=== PATIENT | female | born 1960 | race African-American/Black ===

== ENCOUNTER 2016-11-30 18:03 | Inpatient (IN) | payer MEDICARE, OTHER ==
[~2016-11-30] VITALS: Ht 157.5 cm; Wt 92.7 kg
[~2016-11-30 18:03] MED LIST: ACYCLOVIR800 MG PO; AMLODIPINE10 MG OR; AMLODIPINE10 MG PO; AMLODIPINE5 MG PO; AMOXICILLIN250 M1 PO; ASA/BUT/CAF1 PO; ASPIRIN LOW DOS81 M2 PO; ASPIRIN81 M1 OR; ASPIRIN81 MG PO; ATENOLOL100 M1 PO; ATENOLOL50 MG PO; AUGMENTIN500TAB PO; BACTRIM DS1 TAB OR; BENZOYL PEROXIDE EX; BRILINTA90 MG PO; CARDIZEM CD 180 PO; CARTIA XT180 MG/24 PO; CEFTIN250 MG PO; CEPHALEXIN500 MG OR; CLEOCIN T 1% EX; CLINDAMYCIN11 EX; COREG12.5 MG PO; CORTISPORIN OTI10 ML AD; CRESTOR10 MG PO; CRESTOR20 MG PO; DERMA SMOOTHE TOP; DYAZIDE1 CAP PO; FLEXERIL OR; FLEXERIL10 MG OR; FLEXERIL5 MG PO; FLONASE NASAL50 MCG; HYDRALAZINE25 MG PO; HYDROCHLOROT12.5 MG PO; HYDROCO/APAP1 T10 PO; KETOCONAZOLE21 EX; LASIX 80 MG TAB80 MG PO; LASIX40 MG PO; LISINOP/HCTZ1 TA1 PO; LISINOPRIL20 MG OR; LISINOPRIL20 MG PO; LORTAB 5 PO; LORTAB 7.5 PO; LORTAB 7.57.5 MG PO; LORTAB5 OR; LORTAB5 PO; LOTRISONE TOP; MAXZIDE OR; MEDDOSEPAK PO; METOPROL TAR50 MG PO; METOPROLOL50 MG PO; NITRO-DUR0.4 MG/HR TD; NITROQUICK0.4 MG SL; NITROSTAT0.4 MG SL; NORVASC10 MG PO; NORVASC2.5 MG PO; NORVASC5 MG PO; OXYCO/APAP1 TA5 PO; PERCOCET1 TA4 PO; PLAVIX75 MG PO; POLYSPORIN3.5 GM OP; POT CHLORIDE10 ME1 PO; POT CL MICRO20 MEQ PO; ROBITUSSIN AC10 ML PO; TESSALON PER100 MG PO; TIZANIDINE4 MG PO; TRIAMCINOLON0.13 EX; ULTRAM50 M1 PO; ULTRAM50 MG OR; VYTORIN 10/201 TAB OR; XANAX0.5 MG PO; ZITHROMAX250 MG PO; ZITHROMAX500 MG PO; ZOFRAN ODT4 MG PO; ZPAK PO; ZYRTEC-D AL1 PO; ZYRTEC-D ALG PO
[2016-11-30 19:44] LABS: HEMATOCRIT 40.5 % (37.0-47.0); IMMATURE GRANULOCYTES 0.5 % (0.0-1.0); MEAN CORPUSCULAR HGB 28.3 pG CALC (26.0-32.0); MEAN CORPUSCULAR HGB CONC 32.1 g/L CALC (32.0-36.0); NEUT# 3.42 thou/uL (2.00-7.15); RED BLOOD COUNT 4.6 mill/uL (4.20-5.60); RED CELL DISTRI WIDTH 14.5 % (11.5-15.5)
[2016-11-30 19:46] LABS: URINE BILIRUBIN - DIPSTICK NEGATIVE (NEGATIVE); URINE BLOOD DIPSTICK TRACE-INTACT (NEGATIVE); URINE CLARITY CLEAR; URINE COLOR YELLOW; URINE GLUCOSE - DIPSTICK NEGATIVE (NEGATIVE); URINE KETONE NEGATIVE (NEGATIVE); URINE LEUK ESTERASE NEGATIVE (NEGATIVE); URINE NITRITE - DIPSTICK NEGATIVE (Negative); URINE PH 5.5 (4.5-8.0); URINE PROTEIN - DIPSTICK >=300 mg/dL (NEG-TRACE); URINE SPECIFIC GRAVITY 1.025; URINE UROBILINOGEN - DIPSTICK 0.2 E.U./dL (0.2)
[2016-11-30 20:03] LABS: ALBUMIN 3.8 g/dL (3.2-5.0); BILIRUBIN, TOTAL 0.5 mg/dL (0.0-1.4); CALCIUM 8.8 mg/dL (8.4-10.2); CREATININE 1.3 mg/dL (0.5-1.0); POTASSIUM 4.6 mmol/l (3.5-5.1); TOTAL PROTEIN 7.5 g/dL (6.3-8.2)
[2016-11-30 20:34] LABS: URINE SQUAMOUS EPITHELIAL CELL FEW EPI/hpf (0-FEW)
[2016-11-30] MEDS ORDERED: METOPROL TAR100 MG PO (20:55)
[2016-11-30 22:00] VITALS: BP 160/92
[2016-12-01 04:00] VITALS: BP 150/103
[2016-12-01 05:35] LABS: HEMATOCRIT 43.8 % (37.0-47.0); HEMOGLOBIN 14.1 g/dl (12.0-16.0); IMMATURE GRANULOCYTES 0.3 % (0.0-1.0); MEAN CELL VOLUME 88.5 fL CALC (80.0-100.0); MEAN CORPUSCULAR HGB 28.5 pG CALC (26.0-32.0); MEAN CORPUSCULAR HGB CONC 32.2 g/L CALC (32.0-36.0); NEUT# 2.98 thou/uL (2.00-7.15); RED BLOOD COUNT 4.95 mill/uL (4.20-5.60); RED CELL DISTRI WIDTH 14.6 % (11.5-15.5)
[2016-12-01 05:36] LABS: ALBUMIN 3.7 g/dL (3.2-5.0); BILIRUBIN, TOTAL 0.4 mg/dL (0.0-1.4); CALCIUM 8.5 mg/dL (8.4-10.2); CHOLESTEROL HDL RATIO 5.3 (<4.4 (CALC)); CREATININE 1.2 mg/dL (0.5-1.0); POTASSIUM 4.2 mmol/l (3.5-5.1); TOTAL PROTEIN 7.2 g/dL (6.3-8.2)
[2016-12-01 07:08] VITALS: BP 158/92
[2016-12-01 11:22] VITALS: BP 120/79
[2016-12-01 16:14] VITALS: BP 153/83
[2016-12-01 20:17] VITALS: BP 165/92
[2016-12-02 00:21] VITALS: BP 139/90
[2016-12-02 04:00] VITALS: BP 145/87
[2016-12-02 04:52] LABS: HEMATOCRIT 45.9 % (37.0-47.0); HEMOGLOBIN 14.4 g/dl (12.0-16.0); IMMATURE GRANULOCYTES 0.3 % (0.0-1.0); MEAN CELL VOLUME 90.4 fL CALC (80.0-100.0); MEAN CORPUSCULAR HGB 28.3 pG CALC (26.0-32.0); MEAN CORPUSCULAR HGB CONC 31.4 g/L CALC (32.0-36.0); NEUT# 6.24 thou/uL (2.00-7.15); RED BLOOD COUNT 5.08 mill/uL (4.20-5.60); RED CELL DISTRI WIDTH 14.6 % (11.5-15.5)
[2016-12-02 05:20] LABS: CALCIUM 8.7 mg/dL (8.4-10.2); CREATININE 1.6 mg/dL (0.5-1.0); POTASSIUM 4.7 mmol/l (3.5-5.1)
[2016-12-02 06:26] LABS: URINE BILIRUBIN - DIPSTICK NEGATIVE (NEGATIVE); URINE BLOOD DIPSTICK TRACE-INTACT (NEGATIVE); URINE CLARITY CLEAR; URINE COLOR YELLOW; URINE GLUCOSE - DIPSTICK NEGATIVE (NEGATIVE); URINE KETONE NEGATIVE (NEGATIVE); URINE LEUK ESTERASE NEGATIVE (NEGATIVE); URINE NITRITE - DIPSTICK NEGATIVE (Negative); URINE PH 5.5 (4.5-8.0); URINE PROTEIN - DIPSTICK 100 mg/dL (NEG-TRACE); URINE SPECIFIC GRAVITY >=1.030; URINE UROBILINOGEN - DIPSTICK 0.2 E.U./dL (0.2)
[2016-12-02 06:51] LABS: URINE SQUAMOUS EPITHELIAL CELL FEW EPI/hpf (0-FEW); URINE WBC 0-2 WBC/hpf (0-5)
[2016-12-02 08:03] VITALS: BP 159/98
[2016-12-02 11:05] VITALS: BP 164/96
[2016-12-02 16:24] VITALS: BP 172/100
[2016-12-02 19:03] VITALS: BP 143/83
[2016-12-03] VITALS (8 sets, daily range): BP systolic 142–190; BP diastolic 84–105
[2016-12-03 05:50] LABS: HEMATOCRIT 37.2 % (37.0-47.0); HEMOGLOBIN 12.2 g/dl (12.0-16.0); IMMATURE GRANULOCYTES 0.6 % (0.0-1.0); MEAN CELL VOLUME 87.5 fL CALC (80.0-100.0); MEAN CORPUSCULAR HGB 28.7 pG CALC (26.0-32.0); MEAN CORPUSCULAR HGB CONC 32.8 g/L CALC (32.0-36.0); NEUT# 3.95 thou/uL (2.00-7.15); RED BLOOD COUNT 4.25 mill/uL (4.20-5.60); RED CELL DISTRI WIDTH 14.4 % (11.5-15.5)
[2016-12-03 06:07] LABS: ALBUMIN 3.5 g/dL (3.2-5.0); BILIRUBIN, TOTAL 0.5 mg/dL (0.0-1.4); CALCIUM 8.4 mg/dL (8.4-10.2); CREATININE 1.6 mg/dL (0.5-1.0); TOTAL PROTEIN 6.8 g/dL (6.3-8.2)
[2016-12-04 03:25] VITALS: BP 140/87
[2016-12-04 06:14] LABS: CALCIUM 8.4 mg/dL (8.4-10.2); CREATININE 1.7 mg/dL (0.5-1.0); HEMATOCRIT 36.6 % (37.0-47.0); HEMOGLOBIN 12.1 g/dl (12.0-16.0); IMMATURE GRANULOCYTES 0.5 % (0.0-1.0); MEAN CELL VOLUME 86.9 fL CALC (80.0-100.0); MEAN CORPUSCULAR HGB 28.7 pG CALC (26.0-32.0); MEAN CORPUSCULAR HGB CONC 33.1 g/L CALC (32.0-36.0); NEUT# 2.53 thou/uL (2.00-7.15); POTASSIUM 4.1 mmol/l (3.5-5.1); RED BLOOD COUNT 4.21 mill/uL (4.20-5.60); RED CELL DISTRI WIDTH 14.5 % (11.5-15.5)
[2016-12-04 07:48] VITALS: BP 154/95
[2016-12-04 11:09] VITALS: BP 163/97
[2016-12-04 16:59] VITALS: BP 145/96
[2016-12-04] MEDS ORDERED: LEVAQUIN750 MG PO (17:30)
[2016-12-04] MEDS ORDERED: OXYCOD/APAP1 TA4 PO (17:31)
[2016-12-04] MEDS ORDERED: ALPRAZOLAM0.5 MG PO (17:31)
[2016-12-04] MEDS ORDERED: PROAIR HFA108 MCG/AC PO (17:33)
== END 2016-12-04 19:30 | disposition home health service (06) | DRG 194 ==
LOC: ED 18:03 → ED-I 20:27 → ED 20:42 → MS2 20:43 → ICU 12-01 17:00 → MS2 12-02 07:40
PROVIDERS: Emergency Medicine; ADMIT Internal Medicine Geriatric Medicine; ATTEND Internal Medicine Geriatric Medicine
DX: J18.9 Pneumonia, unspecified organism (principal); I42.9 Cardiomyopathy, unspecified; I11.0 Hypertensive heart disease with heart failure; I50.9 Heart failure, unspecified; I25.10 Atherosclerotic heart disease of native coronary artery without angina pectoris; I48.91 Unspecified atrial fibrillation; K21.9 Gastro-esophageal reflux disease without esophagitis; M19.90 Unspecified osteoarthritis, unspecified site; G89.29 Other chronic pain; M54.5 Low back pain; G47.30 Sleep apnea, unspecified; R09.02 Hypoxemia; Z95.810 Presence of automatic (implantable) cardiac defibrillator; Z95.5 Presence of coronary angioplasty implant and graft

== ENCOUNTER 2017-06-01 14:53 | Emergency (ER) | payer MEDICARE, OTHER ==
[~2017-06-01] VITALS: Ht 157.5 cm; Wt 92.5 kg
[~2017-06-01 14:53] MED LIST changes: +ALPRAZOLAM0.5 MG PO; +LEVAQUIN750 MG PO; +METOPROL TAR100 MG PO; +OXYCOD/APAP1 TA4 PO; +PROAIR HFA108 MCG/AC PO
[2017-06-01 16:11] LABS: INFLUENZA A NONE DETECTED (NONE DETECT); INFLUENZA B NONE DETECTED (NONE DETECT)
[2017-06-01] MEDS ORDERED: MOTRIN400 MG PO (17:28)
[2017-06-01] MEDS ORDERED: DOXYCYC MONO100 M2 PO (17:28)
[2017-06-01 17:44] VITALS: BP 194/98
== END 2017-06-01 17:49 | disposition home or self-care (01) ==
LOC: ED 14:53
PROVIDERS: Family Medicine
DX: J06.9 Acute upper respiratory infection, unspecified (principal); M25.571 Pain in right ankle and joints of right foot; M25.561 Pain in right knee; I11.9 Hypertensive heart disease without heart failure; Z95.0 Presence of cardiac pacemaker; Z87.01 Personal history of pneumonia (recurrent)

== ENCOUNTER 2017-07-06 18:52 | Emergency (ER) | payer MEDICARE, OTHER ==
[~2017-07-06] VITALS: Ht 157.5 cm; Wt 91.4 kg
[~2017-07-06 18:52] MED LIST changes: +DOXYCYC MONO100 M2 PO; +MOTRIN400 MG PO
[2017-07-06 20:12] LABS: ALBUMIN 3.6 g/dL (3.2-5.0); BILIRUBIN, TOTAL 0.4 mg/dL (0.0-1.4); CREATININE 1.4 mg/dL (0.5-1.0); POTASSIUM 4.2 mmol/l (3.5-5.1); TOTAL PROTEIN 6.8 g/dL (6.3-8.2)
[2017-07-06 20:26] LABS: IMMATURE GRANULOCYTES 0.1 % (0.0-1.0); MEAN CELL VOLUME 88.5 fL CALC (80.0-100.0); MEAN CORPUSCULAR HGB 28.8 pG CALC (26.0-32.0); MEAN CORPUSCULAR HGB CONC 32.5 g/L CALC (32.0-36.0); NEUT# 3.45 thou/uL (2.00-7.15); RED BLOOD COUNT 4.52 mill/uL (4.20-5.60); RED CELL DISTRI WIDTH 14.3 % (11.5-15.5)
[2017-07-06] MEDS ORDERED: FIORICET PO (20:38)
[2017-07-06 20:50] VITALS: BP 141/81
== END 2017-07-06 20:55 | disposition home or self-care (01) ==
LOC: ED 18:52
PROVIDERS: Emergency Medicine
DX: R51 Headache (principal); I11.9 Hypertensive heart disease without heart failure; Z95.0 Presence of cardiac pacemaker; Z87.01 Personal history of pneumonia (recurrent)

== ENCOUNTER 2017-07-26 01:27 | Inpatient (IN) | payer MEDICARE, OTHER ==
[2017-07-26] VITALS (15 sets, daily range): BP systolic 137–165; BP diastolic 75–96
[~2017-07-26] VITALS: Ht 157.5 cm; Wt 92.2 kg
[~2017-07-26 01:27] MED LIST changes: +FIORICET PO
[2017-07-26 01:58] LABS: HEMATOCRIT 37.9 % (37.0-47.0); HEMOGLOBIN 12.2 g/dl (12.0-16.0); IMMATURE GRANULOCYTES 0.4 % (0.0-1.0); MEAN CELL VOLUME 88.6 fL CALC (80.0-100.0); MEAN CORPUSCULAR HGB 28.5 pG CALC (26.0-32.0); MEAN CORPUSCULAR HGB CONC 32.2 g/L CALC (32.0-36.0); NEUT# 8.26 thou/uL (2.00-7.15); RED BLOOD COUNT 4.28 mill/uL (4.20-5.60); RED CELL DISTRI WIDTH 14.6 % (11.5-15.5)
[2017-07-26 02:43] LABS: ALBUMIN 3.6 g/dL (3.2-5.0); BILIRUBIN, TOTAL 0.5 mg/dL (0.0-1.4); CREATININE 1.3 mg/dL (0.5-1.0); POTASSIUM 3.8 mmol/l (3.5-5.1); TOTAL PROTEIN 7.4 g/dL (6.3-8.2)
[2017-07-26 03:05] LABS: PROTHROMBIN TIME 10.7 SECONDS (9.0-12.5)
[2017-07-26 05:18] LABS: URINE BILIRUBIN - DIPSTICK NEGATIVE (NEGATIVE); URINE BLOOD DIPSTICK TRACE-INTACT (NEGATIVE); URINE COLOR YELLOW; URINE GLUCOSE - DIPSTICK NEGATIVE (NEGATIVE); URINE KETONE NEGATIVE (NEGATIVE); URINE LEUK ESTERASE NEGATIVE (NEGATIVE); URINE NITRITE - DIPSTICK NEGATIVE (Negative); URINE PH 5.5 (4.5-8.0); URINE PROTEIN - DIPSTICK >=300 mg/dL (NEG-TRACE); URINE SPECIFIC GRAVITY >=1.030; URINE UROBILINOGEN - DIPSTICK 0.2 E.U./dL (0.2)
[2017-07-26 05:19] LABS: URINE CLARITY SL CLOUDY
[2017-07-26 05:24] LABS: URINE BACTERIA FEW hpf; URINE MUCUS FEW hpf (NONE-FEW); URINE SQUAMOUS EPITHELIAL CELL MODERATE EPI/hpf (0-FEW)
[2017-07-26 09:30] LABS: CHOLESTEROL HDL RATIO 5.3 (<4.4 (CALC))
[2017-07-27 04:05] VITALS: BP 136/82
[2017-07-27 04:17] LABS: HEMATOCRIT 36.5 % (37.0-47.0); HEMOGLOBIN 11.7 g/dl (12.0-16.0); IMMATURE GRANULOCYTES 1.6 % (0.0-1.0); MEAN CELL VOLUME 89.9 fL CALC (80.0-100.0); MEAN CORPUSCULAR HGB 28.8 pG CALC (26.0-32.0); MEAN CORPUSCULAR HGB CONC 32.1 g/L CALC (32.0-36.0); NEUT# 10.71 thou/uL (2.00-7.15); RED BLOOD COUNT 4.06 mill/uL (4.20-5.60); RED CELL DISTRI WIDTH 14.6 % (11.5-15.5)
[2017-07-27 04:24] LABS: ALBUMIN 3.5 g/dL (3.2-5.0); BILIRUBIN, TOTAL 0.4 mg/dL (0.0-1.4); CREATININE 1.5 mg/dL (0.5-1.0); TOTAL PROTEIN 7.1 g/dL (6.3-8.2)
[2017-07-27 04:28] LABS: POTASSIUM 4.6 mmol/l (3.5-5.1)
[2017-07-27 06:00] VITALS: BP 139/85
[2017-07-27 08:00] VITALS: BP 156/85
[2017-07-27 10:00] VITALS: BP 155/87
[2017-07-27 11:00] VITALS: BP 128/90
[2017-07-27 12:00] VITALS: BP 120/78
== END 2017-07-27 13:30 | DRG 291 ==
LOC: ED 01:27 → ED-I 05:30 → ED 06:28 → ICU 06:39
PROVIDERS: Emergency Medicine; ADMIT Internal Medicine Geriatric Medicine; ATTEND Internal Medicine Geriatric Medicine
DX: I11.0 Hypertensive heart disease with heart failure (principal); J18.9 Pneumonia, unspecified organism; I47.2 Ventricular tachycardia; I42.9 Cardiomyopathy, unspecified; F11.20 Opioid dependence, uncomplicated; I50.9 Heart failure, unspecified; I25.10 Atherosclerotic heart disease of native coronary artery without angina pectoris; M19.90 Unspecified osteoarthritis, unspecified site; G89.29 Other chronic pain; M10.9 Gout, unspecified; K21.9 Gastro-esophageal reflux disease without esophagitis; K27.9 Peptic ulcer, site unspecified, unspecified as acute or chronic, without hemorrhage or perforation; M54.5 Low back pain; F41.9 Anxiety disorder, unspecified; R09.02 Hypoxemia; G47.30 Sleep apnea, unspecified; Z86.73 Personal history of transient ischemic attack (TIA), and cerebral infarction without residual deficits; Z87.01 Personal history of pneumonia (recurrent); Z95.5 Presence of coronary angioplasty implant and graft; Z95.0 Presence of cardiac pacemaker

== ENCOUNTER 2017-09-30 11:03 | Emergency (ER) | payer MEDICARE, OTHER ==
[~2017-09-30] VITALS: Ht 157.5 cm; Wt 84.0 kg
[2017-09-30 12:16] LABS: IMMATURE GRANULOCYTES 0.4 % (0.0-1.0); MEAN CELL VOLUME 91.8 fL CALC (80.0-100.0); MEAN CORPUSCULAR HGB 28.8 pG CALC (26.0-32.0); MEAN CORPUSCULAR HGB CONC 31.4 g/L CALC (32.0-36.0); NEUT# 2.62 thou/uL (2.00-7.15); RED BLOOD COUNT 3.19 mill/uL (4.20-5.60); RED CELL DISTRI WIDTH 16.7 % (11.5-15.5)
[2017-09-30 12:17] LABS: HEMATOCRIT 29.3 % (37.0-47.0); HEMOGLOBIN 9.2 g/dl (12.0-16.0)
[2017-09-30 12:21] LABS: INTERNATIONAL NORMALIZED RATIO 2.3 RATIO (0.7-1.3); PROTHROMBIN TIME 25.8 SECONDS (9.0-12.5)
[2017-09-30 12:26] LABS: ALBUMIN 4.1 g/dL (3.2-5.0); BILIRUBIN, TOTAL 0.5 mg/dL (0.0-1.4); MAGNESIUM 1.7 mg/dL (1.6-2.3); POTASSIUM 4.2 mmol/l (3.5-5.1); TOTAL PROTEIN 8.1 g/dL (6.3-8.2)
[2017-09-30 12:35] LABS: CREATININE 5.8 mg/dL (0.5-1.0)
[2017-09-30] MEDS ORDERED: PANTOPRAZOLE SO40 MG PO (12:46)
[2017-09-30] MEDS ORDERED: JANTOVEN4 MG PO (12:46)
[2017-09-30] MEDS ORDERED: VITAMIN C1000 MG PO (12:47)
[2017-09-30] MEDS ORDERED: TEMAZEPAM15 MG PO (12:47)
[2017-09-30] MEDS ORDERED: GABAPENTIN100 MG PO (12:47)
[2017-09-30] MEDS ORDERED: ZINC SULFATE220 MG PO (12:48)
[2017-09-30] MEDS ORDERED: AMIODARONE200 MG PO (12:49)
[2017-09-30 13:30] VITALS: BP 167/85
== END 2017-09-30 13:30 | disposition short-term general hospital (02) ==
LOC: ED 11:03
PROVIDERS: Family Medicine
DX: I21.4 Non-ST elevation (NSTEMI) myocardial infarction (principal); N18.6 End stage renal disease; Z99.2 Dependence on renal dialysis; M19.90 Unspecified osteoarthritis, unspecified site; Z86.73 Personal history of transient ischemic attack (TIA), and cerebral infarction without residual deficits; Z95.0 Presence of cardiac pacemaker; Z79.01 Long term (current) use of anticoagulants

== ENCOUNTER 2018-02-24 17:35 | Emergency (ER) | payer MEDICARE, OTHER ==
[~2018-02-24] VITALS: Ht 157.5 cm; Wt 85.0 kg
[~2018-02-24 17:35] MED LIST changes: +AMIODARONE200 MG PO; +GABAPENTIN100 MG PO; +JANTOVEN4 MG PO; +LABETALOL100 MG PO; +NORVASC5 M1 PO; +PANTOPRAZOLE SO40 MG PO; +TEMAZEPAM15 MG PO; +VITAMIN C1000 MG PO; +ZINC SULFATE220 MG PO
[2018-02-24 18:31] LABS: INFLUENZA A NONE DETECTED (NONE DETECT); INFLUENZA B NONE DETECTED (NONE DETECT)
[2018-02-24 19:17] LABS: HEMATOCRIT 34.5 % (37.0-47.0); HEMOGLOBIN 10.8 g/dl (12.0-16.0); IMMATURE GRANULOCYTES 0.6 % (0.0-5.0); MEAN CORPUSCULAR HGB 28.5 pG CALC (26.0-32.0); MEAN CORPUSCULAR HGB CONC 31.3 g/L CALC (32.0-36.0); NEUT# 5.62 thou/uL (2.00-7.15); RED BLOOD COUNT 3.79 mill/uL (4.20-5.60); RED CELL DISTRI WIDTH 17.3 % (11.5-15.5)
[2018-02-24 19:37] LABS: ALBUMIN 3.9 g/dL (3.2-5.0); BILIRUBIN, TOTAL 0.3 mg/dL (0.0-1.4); TOTAL PROTEIN 7.2 g/dL (6.3-8.2)
[2018-02-24 19:39] LABS: CREATININE 7.1 mg/dL (0.5-1.0); POTASSIUM 4.2 mmol/l (3.5-5.1)
[2018-02-24 20:44] LABS: URINE BILIRUBIN - DIPSTICK NEGATIVE (NEGATIVE); URINE BLOOD DIPSTICK SMALL (NEGATIVE); URINE COLOR YELLOW; URINE GLUCOSE - DIPSTICK NEGATIVE (NEGATIVE); URINE KETONE TRACE mg/dL (NEGATIVE); URINE NITRITE - DIPSTICK NEGATIVE (Negative); URINE PH 5.5 (4.5-8.0); URINE PROTEIN - DIPSTICK >=300 mg/dL (NEG-TRACE); URINE SPECIFIC GRAVITY >=1.030; URINE UROBILINOGEN - DIPSTICK 0.2 E.U./dL (0.2)
[2018-02-24 20:46] LABS: URINE CLARITY HAZY; URINE LEUK ESTERASE MODERATE (NEGATIVE)
[2018-02-24 20:47] LABS: URINE SQUAMOUS EPITHELIAL CELL FEW EPI/hpf (0-FEW)
[2018-02-24] MEDS ORDERED: ROBITUSSIN200 MG/10 PO (20:50)
[2018-02-24] MEDS ORDERED: TESSALON PER100 MG PO (20:51)
[2018-02-24 21:19] VITALS: BP 157/87
== END 2018-02-24 21:19 | disposition home or self-care (01) ==
LOC: ED 17:35
DX: B34.9 Viral infection, unspecified (principal); I13.2 Hypertensive heart and chronic kidney disease with heart failure and with stage 5 chronic kidney disease, or end stage renal disease; N18.6 End stage renal disease; I50.9 Heart failure, unspecified; Z99.2 Dependence on renal dialysis; F41.9 Anxiety disorder, unspecified; I25.10 Atherosclerotic heart disease of native coronary artery without angina pectoris; Z95.0 Presence of cardiac pacemaker; Z86.73 Personal history of transient ischemic attack (TIA), and cerebral infarction without residual deficits; R94.31 Abnormal electrocardiogram [ECG] [EKG]

== ENCOUNTER 2018-03-08 04:27 | Emergency (ER) | payer MEDICARE, OTHER ==
[~2018-03-08] VITALS: Ht 157.5 cm; Wt 80.0 kg
[~2018-03-08 04:27] MED LIST changes: +ROBITUSSIN200 MG/10 PO
[2018-03-08 05:14] LABS: IMMATURE GRANULOCYTES 0.4 % (0.0-5.0); MEAN CELL VOLUME 89.1 fL CALC (80.0-100.0); MEAN CORPUSCULAR HGB 28.7 pG CALC (26.0-32.0); MEAN CORPUSCULAR HGB CONC 32.3 g/L CALC (32.0-36.0); NEUT# 5.17 thou/uL (2.00-7.15); RED BLOOD COUNT 3.48 mill/uL (4.20-5.60); RED CELL DISTRI WIDTH 16.9 % (11.5-15.5)
[2018-03-08 05:22] LABS: ALBUMIN 3.5 g/dL (3.2-5.0); BILIRUBIN, TOTAL 0.4 mg/dL (0.0-1.4); POTASSIUM 4.2 mmol/l (3.5-5.1); TOTAL PROTEIN 6.8 g/dL (6.3-8.2)
[2018-03-08 05:24] LABS: ACT PARTIAL THROMBO TIME 33.2 SECONDS (20.0-32.5)
[2018-03-08 05:35] LABS: PROTHROMBIN TIME 10.3 SECONDS (9.0-12.5)
[2018-03-08 05:37] LABS: CREATININE 6.6 mg/dL (0.5-1.0)
[2018-03-08 07:22] VITALS: BP 170/91
== END 2018-03-08 07:15 | disposition short-term general hospital (02) ==
LOC: ED 04:27
PROVIDERS: Emergency Medicine
DX: R07.9 Chest pain, unspecified (principal); I13.2 Hypertensive heart and chronic kidney disease with heart failure and with stage 5 chronic kidney disease, or end stage renal disease; N18.6 End stage renal disease; I50.9 Heart failure, unspecified; I25.10 Atherosclerotic heart disease of native coronary artery without angina pectoris; Z99.2 Dependence on renal dialysis; Z95.0 Presence of cardiac pacemaker; Z86.73 Personal history of transient ischemic attack (TIA), and cerebral infarction without residual deficits; R06.02 Shortness of breath

== ENCOUNTER 2018-05-29 15:16 | Emergency (ER) | payer MEDICARE, OTHER ==
[~2018-05-29] VITALS: Ht 157.5 cm; Wt 104.5 kg
[2018-05-29] MEDS ORDERED: PHENERGAN25 MG/TAB PO (16:37)
[2018-05-29] MEDS ORDERED: AMOXICILLIN500 MG PO (16:37)
[2018-05-29 16:43] VITALS: BP 175/79
== END 2018-05-29 16:51 | disposition home or self-care (01) ==
LOC: ED 15:16
DX: I12.0 Hypertensive chronic kidney disease with stage 5 chronic kidney disease or end stage renal disease (principal); N18.6 End stage renal disease; T46.5X6A Underdosing of other antihypertensive drugs, initial encounter; F41.9 Anxiety disorder, unspecified; Z99.2 Dependence on renal dialysis; Z91.128 Patient's intentional underdosing of medication regimen for other reason; Z86.73 Personal history of transient ischemic attack (TIA), and cerebral infarction without residual deficits; Z95.0 Presence of cardiac pacemaker

== ENCOUNTER 2018-07-19 19:46 | Emergency (ER) | payer MEDICARE, OTHER ==
[~2018-07-19] VITALS: Ht 157.5 cm; Wt 79.8 kg
[~2018-07-19 19:46] MED LIST changes: +AMOXICILLIN500 MG PO; +PHENERGAN25 MG/TAB PO
[2018-07-19] MEDS ORDERED: AUGMENTIN500TAB PO (20:12)
[2018-07-19 20:35] VITALS: BP 147/91
== END 2018-07-19 20:35 | disposition home or self-care (01) ==
LOC: ED 19:46
DX: J01.90 Acute sinusitis, unspecified (principal); I13.2 Hypertensive heart and chronic kidney disease with heart failure and with stage 5 chronic kidney disease, or end stage renal disease; I50.9 Heart failure, unspecified; N18.6 End stage renal disease; I25.10 Atherosclerotic heart disease of native coronary artery without angina pectoris; Z99.2 Dependence on renal dialysis; Z95.0 Presence of cardiac pacemaker

== ENCOUNTER 2018-07-29 18:13 | Emergency (ER) | payer MEDICARE, OTHER ==
[~2018-07-29] VITALS: Ht 157.5 cm; Wt 80.6 kg
[2018-07-29 19:23] LABS: HEMATOCRIT 34.5 % (37.0-47.0); HEMOGLOBIN 10.9 g/dl (12.0-16.0); IMMATURE GRANULOCYTES 0.3 % (0.0-5.0); MEAN CELL VOLUME 88.2 fL CALC (80.0-100.0); MEAN CORPUSCULAR HGB 27.9 pG CALC (26.0-32.0); MEAN CORPUSCULAR HGB CONC 31.6 g/L CALC (32.0-36.0); NEUT# 6.62 thou/uL (2.00-7.15); RED BLOOD COUNT 3.91 mill/uL (4.20-5.60); RED CELL DISTRI WIDTH 15.9 % (11.5-15.5)
[2018-07-29 19:42] LABS: URINE BILIRUBIN - DIPSTICK NEGATIVE (NEGATIVE); URINE BLOOD DIPSTICK NEGATIVE (NEGATIVE); URINE COLOR YELLOW; URINE GLUCOSE - DIPSTICK NEGATIVE (NEGATIVE); URINE KETONE TRACE mg/dL (NEGATIVE); URINE NITRITE - DIPSTICK NEGATIVE (Negative); URINE PROTEIN - DIPSTICK 100 mg/dL (NEG-TRACE); URINE SPECIFIC GRAVITY >=1.030; URINE UROBILINOGEN - DIPSTICK 0.2 E.U./dL (0.2)
[2018-07-29 19:44] LABS: BILIRUBIN, TOTAL 0.5 mg/dL (0.0-1.4); MAGNESIUM 1.7 mg/dL (1.6-2.3); POTASSIUM 4.4 mmol/l (3.5-5.1); TOTAL PROTEIN 8.1 g/dL (6.3-8.2)
[2018-07-29 19:45] LABS: URINE LEUK ESTERASE SMALL (NEGATIVE)
[2018-07-29 19:47] LABS: ALBUMIN 4.6 g/dL (3.2-5.0); CREATININE 5.8 mg/dL (0.5-1.0)
[2018-07-29 19:51] LABS: URINE RBC 0-2 RBC/hpf (0-5); URINE SQUAMOUS EPITHELIAL CELL FEW EPI/hpf (0-FEW)
[2018-07-29 20:14] LABS: TSH, 3RD GENERATION 2.42 uIU/mL (0.47 - 4.68)
[2018-07-29] MEDS ORDERED: TORADOL PO (20:24)
[2018-07-29] MEDS ORDERED: KEFLEX500 MG PO (20:24)
[2018-07-29 20:47] VITALS: BP 134/77
== END 2018-07-29 20:44 | disposition home or self-care (01) ==
LOC: ED 18:13
PROVIDERS: Family Medicine
DX: S16.1XXA Strain of muscle, fascia and tendon at neck level, initial encounter (principal); N39.0 Urinary tract infection, site not specified; K59.00 Constipation, unspecified; R53.1 Weakness; Z86.73 Personal history of transient ischemic attack (TIA), and cerebral infarction without residual deficits; Z95.0 Presence of cardiac pacemaker; I12.0 Hypertensive chronic kidney disease with stage 5 chronic kidney disease or end stage renal disease; N18.6 End stage renal disease; Z99.2 Dependence on renal dialysis

== ENCOUNTER 2018-09-19 09:51 | Observation (INO) | payer MEDICARE, OTHER ==
[~2018-09-19] VITALS: Ht 157.5 cm; Wt 82.0 kg
[~2018-09-19 09:51] MED LIST changes: +KEFLEX500 MG PO; +TORADOL PO
[2018-09-19] MEDS ORDERED: ELIQUIS5 MG PO (10:34)
[2018-09-19 10:41] LABS: HEMATOCRIT 36.3 % (37.0-47.0); HEMOGLOBIN 11.1 g/dl (12.0-16.0); IMMATURE GRANULOCYTES 0.5 % (0.0-5.0); MEAN CORPUSCULAR HGB 28.7 pG CALC (26.0-32.0); MEAN CORPUSCULAR HGB CONC 30.6 g/L CALC (32.0-36.0); NEUT# 7.9 thou/uL (2.00-7.15); RED BLOOD COUNT 3.87 mill/uL (4.20-5.60); RED CELL DISTRI WIDTH 17.3 % (11.5-15.5)
[2018-09-19 10:45] LABS: MEAN CELL VOLUME 93.8 fL CALC (80.0-100.0)
[2018-09-19 11:39] LABS: CREATININE 7.3 mg/dL (0.5-1.0)
[2018-09-19 20:00] VITALS: BP 150/83
[2018-09-20] VITALS: BP 145/84
[2018-09-20 04:00] VITALS: BP 151/79
[2018-09-20 04:31] LABS: HEMATOCRIT 35.4 % (37.0-47.0); HEMOGLOBIN 10.8 g/dl (12.0-16.0); IMMATURE GRANULOCYTES 0.2 % (0.0-5.0); MEAN CELL VOLUME 93.9 fL CALC (80.0-100.0); MEAN CORPUSCULAR HGB 28.6 pG CALC (26.0-32.0); MEAN CORPUSCULAR HGB CONC 30.5 g/L CALC (32.0-36.0); NEUT# 5.58 thou/uL (2.00-7.15); RED BLOOD COUNT 3.77 mill/uL (4.20-5.60); RED CELL DISTRI WIDTH 16.9 % (11.5-15.5)
[2018-09-20 04:46] LABS: ALKALINE PHOSPHATASE 69 u/l (38-126); BILIRUBIN, TOTAL 0.4 mg/dL (0.0-1.4); BUN 66 mg/dL (7-17); CARBON DIOXIDE 23 mmol/l (22-30); CHLORIDE 100 mmol/l (95-108); SGOT/AST 13 u/l (14-36); SODIUM 140 mmol/l (137-146); TOTAL PROTEIN 7.1 g/dL (6.3-8.2)
[2018-09-20 04:52] LABS: ANION GAP 22 (6-22 (CALC)); BUN/CREATININE RATIO 8 (12-20 (CALC)); CREATININE 8.6 mg/dL (0.5-1.0); GFR 5 ML/MIN (>=60 (CALC)); GFR FOR AFR.AMER. 6 ML/MIN (>=60 (CALC)); POTASSIUM 5.2 mmol/l (3.5-5.1)
[2018-09-20 08:36] VITALS: BP 159/82
[2018-09-20 10:00] VITALS: BP 151/80
== END 2018-09-20 10:47 | disposition home or self-care (01) ==
LOC: ED 09:51 → ED-I 12:42 → ED 13:06 → ICU 13:07 → ED-I 13:07 → ICU 16:54
PROVIDERS: Family Medicine; ADMIT Internal Medicine Geriatric Medicine; ATTEND Internal Medicine Geriatric Medicine
DX: G89.18 Other acute postprocedural pain (principal); I13.2 Hypertensive heart and chronic kidney disease with heart failure and with stage 5 chronic kidney disease, or end stage renal disease; N18.6 End stage renal disease; I50.9 Heart failure, unspecified; I42.9 Cardiomyopathy, unspecified; I48.91 Unspecified atrial fibrillation; I25.10 Atherosclerotic heart disease of native coronary artery without angina pectoris; F41.9 Anxiety disorder, unspecified; G89.29 Other chronic pain; F19.20 Other psychoactive substance dependence, uncomplicated; Z99.2 Dependence on renal dialysis; Z86.73 Personal history of transient ischemic attack (TIA), and cerebral infarction without residual deficits; Z95.810 Presence of automatic (implantable) cardiac defibrillator; Z95.5 Presence of coronary angioplasty implant and graft; M79.631 Pain in right forearm; M79.89 Other specified soft tissue disorders

== ENCOUNTER 2018-09-21 19:22 | Observation (INO) | payer MEDICARE, OTHER ==
[~2018-09-21] VITALS: Ht 157.5 cm; Wt 80.7 kg
[~2018-09-21 19:22] MED LIST changes: +ELIQUIS5 MG PO
[2018-09-21 20:38] LABS: HEMATOCRIT 35.2 % (37.0-47.0); HEMOGLOBIN 11.1 g/dl (12.0-16.0); IMMATURE GRANULOCYTES 0.2 % (0.0-5.0); MEAN CELL VOLUME 91.9 fL CALC (80.0-100.0); MEAN CORPUSCULAR HGB CONC 31.5 g/L CALC (32.0-36.0); NEUT# 5.86 thou/uL (2.00-7.15); RED BLOOD COUNT 3.83 mill/uL (4.20-5.60); RED CELL DISTRI WIDTH 16.2 % (11.5-15.5)
[2018-09-21 20:56] LABS: ALBUMIN 4.7 g/dL (3.2-5.0); BILIRUBIN, TOTAL 0.5 mg/dL (0.0-1.4); POTASSIUM 4.7 mmol/l (3.5-5.1)
[2018-09-21 20:57] LABS: INTERNATIONAL NORMALIZED RATIO 0.9 RATIO (0.7-1.3); PROTHROMBIN TIME 9.9 SECONDS (9.0-12.5)
[2018-09-21 20:59] LABS: TOTAL PROTEIN 8.8 g/dL (6.3-8.2)
[2018-09-21 21:00] LABS: CREATININE 6.2 mg/dL (0.5-1.0)
[2018-09-21 23:33] VITALS: BP 156/76
[2018-09-22 04:15] VITALS: BP 166/90
[2018-09-22 04:55] VITALS: BP 158/86
[2018-09-22 07:35] VITALS: BP 140/90
== END 2018-09-22 10:38 | disposition home or self-care (01) ==
LOC: ED 19:22 → ED-I 21:41 → ED 22:15 → MS2 22:16
PROVIDERS: Emergency Medicine; ADMIT Internal Medicine Geriatric Medicine; ATTEND Internal Medicine Geriatric Medicine
DX: R41.0 Disorientation, unspecified (principal); I13.2 Hypertensive heart and chronic kidney disease with heart failure and with stage 5 chronic kidney disease, or end stage renal disease; N18.6 End stage renal disease; I50.9 Heart failure, unspecified; I25.10 Atherosclerotic heart disease of native coronary artery without angina pectoris; I42.9 Cardiomyopathy, unspecified; I48.91 Unspecified atrial fibrillation; K21.9 Gastro-esophageal reflux disease without esophagitis; K27.9 Peptic ulcer, site unspecified, unspecified as acute or chronic, without hemorrhage or perforation; F32.9 Major depressive disorder, single episode, unspecified; M79.601 Pain in right arm; M79.89 Other specified soft tissue disorders; Z99.2 Dependence on renal dialysis; Z86.73 Personal history of transient ischemic attack (TIA), and cerebral infarction without residual deficits; Z95.0 Presence of cardiac pacemaker; Z95.810 Presence of automatic (implantable) cardiac defibrillator; G47.30 Sleep apnea, unspecified; Z91.19 Patient's noncompliance with other medical treatment and regimen

== ENCOUNTER 2018-10-11 05:02 | Emergency (ER) | payer MEDICARE, OTHER ==
[~2018-10-11] VITALS: Ht 157.5 cm; Wt 81.8 kg
[2018-10-11 06:09] LABS: HEMATOCRIT 32.3 % (37.0-47.0); HEMOGLOBIN 10.1 g/dl (12.0-16.0); IMMATURE GRANULOCYTES 0.4 % (0.0-5.0); MEAN CELL VOLUME 93.4 fL CALC (80.0-100.0); MEAN CORPUSCULAR HGB 29.2 pG CALC (26.0-32.0); MEAN CORPUSCULAR HGB CONC 31.3 g/L CALC (32.0-36.0); NEUT# 4.8 thou/uL (2.00-7.15); RED BLOOD COUNT 3.46 mill/uL (4.20-5.60); RED CELL DISTRI WIDTH 16.3 % (11.5-15.5)
[2018-10-11 06:24] LABS: ALBUMIN 4.1 g/dL (3.2-5.0); BILIRUBIN, TOTAL 0.3 mg/dL (0.0-1.4); POTASSIUM 4.9 mmol/l (3.5-5.1)
[2018-10-11 06:28] LABS: CREATININE 8.5 mg/dL (0.5-1.0)
[2018-10-11] MEDS ORDERED: TRAMADOL HCL50 MG PO (07:00)
[2018-10-11 07:28] VITALS: BP 149/85
== END 2018-10-11 07:28 | disposition home or self-care (01) ==
LOC: ED 05:02
PROVIDERS: Family Medicine
DX: R51 Headache (principal); I10 Essential (primary) hypertension; Z86.73 Personal history of transient ischemic attack (TIA), and cerebral infarction without residual deficits

== ENCOUNTER 2018-12-31 19:51 | Emergency (ER) | payer MEDICARE, OTHER ==
[~2018-12-31] VITALS: Ht 157.5 cm; Wt 88.6 kg
[~2018-12-31 19:51] MED LIST changes: +TRAMADOL HCL50 MG PO
[2018-12-31 20:26] LABS: HEMATOCRIT 36.4 % (37.0-47.0); HEMOGLOBIN 11.3 g/dl (12.0-16.0); IMMATURE GRANULOCYTES 0.4 % (0.0-5.0); MEAN CELL VOLUME 92.9 fL CALC (80.0-100.0); MEAN CORPUSCULAR HGB 28.8 pG CALC (26.0-32.0); NEUT# 4.31 thou/uL (2.00-7.15); RED BLOOD COUNT 3.92 mill/uL (4.20-5.60); RED CELL DISTRI WIDTH 15.2 % (11.5-15.5)
[2018-12-31 21:41] VITALS: BP 142/87
== END 2018-12-31 21:41 | disposition home or self-care (01) ==
LOC: ED 19:51
PROVIDERS: Family Medicine
DX: J20.8 Acute bronchitis due to other specified organisms (principal); I12.0 Hypertensive chronic kidney disease with stage 5 chronic kidney disease or end stage renal disease; N18.6 End stage renal disease; Z99.2 Dependence on renal dialysis

== ENCOUNTER 2019-05-28 | Emergency (ER) | payer MEDICARE, OTHER | END 2019-05-28 17:05 | disposition left against medical advice (07) | DX: R53.1 Weakness (principal); I12.0 Hypertensive chronic kidney disease with stage 5 chronic kidney disease or end stage renal disease; N18.6 End stage renal disease; Z99.2 Dependence on renal dialysis; Z91.19 Patient's noncompliance with other medical treatment and regimen ==

== ENCOUNTER 2019-11-18 07:05 | Emergency (ER) | payer MEDICARE, OTHER ==
[~2019-11-18] VITALS: Ht 162.6 cm; Wt 86.3 kg
[2019-11-18 07:26] LABS: HEMATOCRIT 33.4 % (37.0-47.0); HEMOGLOBIN 10.4 g/dl (12.0-16.0); IMMATURE GRANULOCYTES 0.2 % (0.0-5.0); MEAN CELL VOLUME 96.3 fL CALC (80.0-100.0); MEAN CORPUSCULAR HGB CONC 31.1 g/dL CAL (32.0-36.0); NEUT# 3.68 thou/uL (2.00-7.15); RED BLOOD COUNT 3.47 mill/uL (4.20-5.60); RED CELL DISTRI WIDTH 14.8 % (11.5-15.5)
[2019-11-18 07:45] LABS: ALBUMIN 4.5 g/dL (3.2-5.0); BILIRUBIN, TOTAL 0.4 mg/dL (0.0-1.4); TOTAL PROTEIN 7.7 g/dL (6.3-8.2)
[2019-11-18 07:48] LABS: CREATININE 10.2 mg/dL (0.5-1.0); POTASSIUM 5.2 mmol/l (3.5-5.1)
[2019-11-18 09:14] VITALS: BP 194/91
[2019-11-18] MEDS ORDERED: ANUCORT-HC25 M1 RE (10:20)
[2019-11-18] MEDS ORDERED: HYDROCORTISONE12 TOP (11:04)
== END 2019-11-18 09:22 | disposition home or self-care (01) ==
LOC: ED 07:05
PROVIDERS: Family Medicine
DX: K52.9 Noninfective gastroenteritis and colitis, unspecified (principal); I12.0 Hypertensive chronic kidney disease with stage 5 chronic kidney disease or end stage renal disease; N18.6 End stage renal disease; I25.10 Atherosclerotic heart disease of native coronary artery without angina pectoris; Z99.2 Dependence on renal dialysis; Z86.73 Personal history of transient ischemic attack (TIA), and cerebral infarction without residual deficits

== ENCOUNTER 2020-06-04 15:26 | Emergency (ER) | payer MEDICARE, OTHER ==
[~2020-06-04] VITALS: Ht 162.6 cm; Wt 87.0 kg
[~2020-06-04 15:26] MED LIST changes: +ANUCORT-HC25 M1 RE; +HYDROCORTISONE12 TOP
[2020-06-04 17:21] LABS: HEMATOCRIT 31.9 % (37.0-47.0); HEMOGLOBIN 9.9 g/dl (12.0-16.0); IMMATURE GRANULOCYTES 0.4 % (0.0-5.0); MEAN CELL VOLUME 96.4 fL CALC (80.0-100.0); MEAN CORPUSCULAR HGB 29.9 pG CALC (26.0-32.0); NEUT# 5.64 thou/uL (2.00-7.15); RED BLOOD COUNT 3.31 mill/uL (4.20-5.60); RED CELL DISTRI WIDTH 13.7 % (11.5-15.5)
[2020-06-04 17:22] LABS: URINE BILIRUBIN - DIPSTICK NEGATIVE (NEGATIVE); URINE BLOOD DIPSTICK TRACE-INTACT (NEGATIVE); URINE COLOR YELLOW; URINE GLUCOSE - DIPSTICK NEGATIVE (NEGATIVE); URINE KETONE NEGATIVE (NEGATIVE); URINE LEUK ESTERASE NEGATIVE (NEGATIVE); URINE NITRITE - DIPSTICK NEGATIVE (Negative); URINE PH 7.5 (4.5-8.0); URINE PROTEIN - DIPSTICK 100 mg/dL (NEG-TRACE); URINE SPECIFIC GRAVITY 1.025; URINE UROBILINOGEN - DIPSTICK 0.2 E.U./dL (0.2)
[2020-06-04 17:24] LABS: URINE RBC 0-2 RBC/hpf (0-5); URINE SQUAMOUS EPITHELIAL CELL FEW EPI/hpf (0-FEW); URINE WBC 0-2 WBC/hpf (0-5)
[2020-06-04 17:40] LABS: ACT PARTIAL THROMBO TIME 30.8 SECONDS (20.0-32.5); PROTHROMBIN TIME 10.2 SECONDS (9.0-12.5)
[2020-06-04 17:41] LABS: ALBUMIN 4.5 g/dL (3.2-5.0); BILIRUBIN, TOTAL 0.5 mg/dL (0.0-1.4); POTASSIUM 4.5 mmol/l (3.5-5.1); TOTAL PROTEIN 7.8 g/dL (6.3-8.2)
[2020-06-04 17:44] LABS: CREATININE 11.4 mg/dL (0.5-1.0)
[2020-06-04 19:04] VITALS: BP 203/88
== END 2020-06-04 19:05 | disposition home or self-care (01) ==
LOC: ED 15:26
PROVIDERS: Student in an Organized Health Care Education/Training Program
DX: R51.9 Headache, unspecified (principal); I12.0 Hypertensive chronic kidney disease with stage 5 chronic kidney disease or end stage renal disease; N18.6 End stage renal disease; Z99.2 Dependence on renal dialysis; Z86.73 Personal history of transient ischemic attack (TIA), and cerebral infarction without residual deficits; Z20.822 Contact with and (suspected) exposure to COVID-19

== ENCOUNTER 2020-07-16 16:45 | Emergency (ER) | payer MEDICARE, OTHER ==
[~2020-07-16] VITALS: Ht 162.6 cm; Wt 80.0 kg
[2020-07-16 18:01] LABS: HEMATOCRIT 28.1 % (37.0-47.0); HEMOGLOBIN 8.6 g/dl (12.0-16.0); IMMATURE GRANULOCYTES 0.4 % (0.0-5.0); MEAN CORPUSCULAR HGB 28.8 pG CALC (26.0-32.0); MEAN CORPUSCULAR HGB CONC 30.6 g/dL CAL (32.0-36.0); NEUT# 7.84 thou/uL (2.00-7.15); RED BLOOD COUNT 2.99 mill/uL (4.20-5.60); RED CELL DISTRI WIDTH 13.2 % (11.5-15.5)
[2020-07-16] MEDS ORDERED: NORVASC5 M1 PO (18:18)
[2020-07-16] MEDS ORDERED: XANAX0.25 MG PO (18:18)
[2020-07-16] MEDS ORDERED: METOPROL TAR25 MG PO (18:19)
[2020-07-16] MEDS ORDERED: VITAMIN C500 M1 PO (18:19)
[2020-07-16] MEDS ORDERED: ATORVASTATIN CA10 MG PO (18:20)
[2020-07-16 18:25] LABS: ALBUMIN 4.6 g/dL (3.2-5.0); BILIRUBIN, TOTAL 0.6 mg/dL (0.0-1.4); POTASSIUM 4.4 mmol/l (3.5-5.1); TOTAL PROTEIN 8.1 g/dL (6.3-8.2)
[2020-07-16 18:27] LABS: ACT PARTIAL THROMBO TIME 32.6 SECONDS (20.0-32.5); INTERNATIONAL NORMALIZED RATIO 1.1 RATIO (0.7-1.3); PROTHROMBIN TIME 11.2 SECONDS (9.0-12.5)
[2020-07-16 18:32] LABS: CREATININE 9.5 mg/dL (0.5-1.0)
[2020-07-16 20:50] VITALS: BP 139/69
== END 2020-07-16 20:50 | disposition short-term general hospital (02) ==
LOC: ED 16:45
DX: I21.4 Non-ST elevation (NSTEMI) myocardial infarction (principal); I13.2 Hypertensive heart and chronic kidney disease with heart failure and with stage 5 chronic kidney disease, or end stage renal disease; Z20.822 Contact with and (suspected) exposure to COVID-19; N18.6 End stage renal disease; I50.9 Heart failure, unspecified; R09.02 Hypoxemia; I25.10 Atherosclerotic heart disease of native coronary artery without angina pectoris; Z99.2 Dependence on renal dialysis; Z86.73 Personal history of transient ischemic attack (TIA), and cerebral infarction without residual deficits; Z95.5 Presence of coronary angioplasty implant and graft
CPT/HCPCS: J1644

== ENCOUNTER 2020-11-03 14:09 | Inpatient (IN) | payer MEDICARE, OTHER ==
[~2020-11-03] VITALS: Ht 162.6 cm; Wt 84.2 kg
[~2020-11-03 14:09] MED LIST changes: +ATORVASTATIN CA10 MG PO; +METOPROL TAR25 MG PO; +VITAMIN C500 M1 PO; +XANAX0.25 MG PO
--- NOTE | 2020-11-03 14:09 | NUR ---
PATIENT TO ROOM VIA EMS AND PHYSICIAN AT BEDSIDE FOR EVAL
--- NOTE | 2020-11-03 14:30 | NUR ---
ATTEMPTED TO START IV SITE. UNABLE TO ESTABLISH AT THIS TIME. MD AWARE. COVID SWAB COLLECTED. PT REPORTS GENERALIZED PAIN, NOW IN JOINTS OF LEFT SHOULDER.
[2020-11-03] MEDS ORDERED: DRISDOL50000 UNIT PO (14:48)
[2020-11-03] MEDS ORDERED: FERROUS SULFAT324 MG PO (14:50)
[2020-11-03] MEDS ORDERED: ELIQUIS2.5 MG PO (14:52)
[2020-11-03] MEDS ORDERED: NORMODYNE/TRAN100 MG PO (14:55)
[2020-11-03] MEDS ORDERED: ASPIRIN/ENTERIC81 MG PO (14:56)
[2020-11-03] MEDS ORDERED: PROTONIX40 M2 PO (14:57)
[2020-11-03] MEDS ORDERED: DIALYVIT2 PO (14:58)
[2020-11-03] MEDS ORDERED: RENAGEL 800MG800 MG PO (15:00)
--- NOTE | 2020-11-03 15:00 | NUR ---
DR FRANKLIN AWARE OF CONTINUED DELAY WE ARE UNABLE TO PLACE IV SITE OR OBTAIN BLOOD SAMPLE.
--- NOTE | 2020-11-03 15:25 | NUR ---
PATIENT BP 92/67. DR FRANKLIN NOTIFIED, WILL HOLD NITRO AT THIS TIME.
[2020-11-03 15:29] LABS: HEMATOCRIT 32.4 % (37.0-47.0); HEMOGLOBIN 9.8 g/dl (12.0-16.0); IMMATURE GRANULOCYTES 0.4 % (0.0-5.0); MEAN CELL VOLUME 92.8 fL CALC (80.0-100.0); MEAN CORPUSCULAR HGB 28.1 pG CALC (26.0-32.0); MEAN CORPUSCULAR HGB CONC 30.2 g/dL CAL (32.0-36.0); NEUT# 18.63 thou/uL (2.00-7.15); RED BLOOD COUNT 3.49 mill/uL (4.20-5.60); RED CELL DISTRI WIDTH 17.2 % (11.5-15.5)
--- NOTE | 2020-11-03 15:35 | NUR ---
PATIENT REQUESTING PAIN MEDICATION, PLACED ORDER FOR MORPHINE AND ZOFRAN. /WILL HOLD DUE TO BP OF 87/58.
[2020-11-03 15:52] LABS: ALBUMIN 4.3 g/dL (3.2-5.0); BILIRUBIN, TOTAL 0.7 mg/dL (0.0-1.4); POTASSIUM 3.7 mmol/l (3.5-5.1); TOTAL PROTEIN 8.2 g/dL (6.3-8.2)
[2020-11-03 15:55] LABS: INTERNATIONAL NORMALIZED RATIO 1.1 RATIO (0.7-1.3); PROTHROMBIN TIME 11.1 SECONDS (9.0-12.5)
[2020-11-03 15:57] LABS: CREATININE 6.2 mg/dL (0.5-1.0)
--- NOTE | 2020-11-03 16:02 | NUR ---
PT MEDICATED PER ORDERED WITH MORPHINE AND ZOFRAN, GENERALIZED JOINT PAIN OF 8/10. PATIENT AWARE OF PLAN OF CARE AND WAIT TIME.
--- NOTE | 2020-11-03 16:40 | NUR ---
DR FRANKLIN AT BEDSIDE TO DISCUSS RESULTS AND PLAN OF CARE.
--- NOTE | 2020-11-03 16:52 | NUR ---
PT AWARE OF PENDING ADMISSION, PAIN IS NOW 4/10 AND SHE IS RESTING COMFORTABLY.
--- NOTE | 2020-11-03 17:19 | NUR ---
ATTEMPTED TO CALL REPORT, NURSE WILL CALL BACK.
--- NOTE | 2020-11-03 17:30 | NUR ---
REPORT CALLED TO GLORIA NUNES.
--- NOTE | 2020-11-03 17:32 | NUR ---
RECIEVED REPORT FROM BRADLEY ANGUIANO
--- NOTE | 2020-11-03 18:09 | NUR ---
PT ARRIVED TO [facility] ROOM 267 VIA PORTABLE ACCOMPAINED BY ER STAFF. PT IS A/OX3. ASSESSMENT AND VITALS COMPLETED. REPSIRATIONS ARE EVEN AND UNLABORED ON 2L NC. LUNG SOUNDS CLEAR. HEART RHYTHM NORMAL WITH TELE IN PLACE, SR PER ER MONITORING. ([id number]). RADIAL AND PEDAL PULSES STRONG. #20G LW AND #22G LAC FLUSHED, SITE APPEARS HEALTHY AND PATENT. PT COMPLAINS OF 8/10 MIDSTERNAL AND LEFT ARMPIT PAIN. PERCOCET OFFERED. PT REFUSED STATING SHE WANTED TO WAIT UNTIL LATER BEACUSE SHE WILL FALL ASLEEPING. SKIN INTACT. PT IS A D[place] THAT SHE GOES TO M/W/F FOR 3 HOURS. GRAFT NOTED TO RFA. RIGHT LIMB ALERT NOTED. ALLERGIES NOTED. PT INFORMED OF NEEDED URINE. PT ORIENTED TO ROOM AND CALL SYSTEM. ALL SAFETY PRECAUTIONS ARE IN PLACE WITH CALL LIGHT IN REACH. WILL CONTINUE TO MONITOR.,
--- NOTE | 2020-11-03 18:10 | NUR ---
Admission Note Report Given to: GLORIA NUNES Transported by: X Wheelchair Stretcher Transported with: X Nurse Transporter X Patent IV X O2 X Auto Design Checker Location: ICU X MS2 PT TO ROOM IN STABLE CONDITION.
[2020-11-03 19:00] VITALS: BP 106/75
--- NOTE | 2020-11-03 19:35 | NUR ---
PT IS AWAKE UPRIGHT IN THE BED. SHE APPEARED RESTFUL UPON ENTERING THE ROOM. WHEN ASKED HOW HER PAIN WAS SHE GAVE A 10 ON PAIN SCALE. WE DISCUSSED MEDICATIONS AND INFORMED HER THAT WE WOULD BRING HER PERCOCET AVAILABLE. SHE ASKED IF THE KITCHEN WAS OPEN AND IF WE WERE ABLE TO GET ANOTHER GRILLED CHEESE LIKE SHE HAD FOR DINNER TRAY, I LET HER KNOW THAT WE DID NOT HAVE KITCHEN ACCESS, BUT OTHER SNACKS OFFERED/REFUSED.
--- NOTE | 2020-11-03 19:53 | NUR ---
PT MEDICATED ORDERS PROVIDE WITH PAIN MEDICATION, REPORTED AT THIS TIME A 4/10 ON PAIN SCALE. SHE DESCRIBED THE PAIN COMING IN WAVES. NO OTHER S/O DISTRESS NOTED. OXYGEN NC ON AT THIS TIME @2L.
--- NOTE | 2020-11-03 22:25 | NUR ---
PT WAS ASLEEP WE ENTERED THE ROOM, BUT AWOKE TO OUR VOICES. V/S ASSESSED, OXYGEN SAT 90% ON 2LNC, OXYGEN PLACED AT 3L, WILL REASSESS AND MONITOR. PT WAS MEDICATED ORDERS PROVIDE AND ASSISTED TO THE RESTROOM. HYGIENE ITEMS PROVIDED ALONG WITH ASSISTANCE. WALKED WITH HER BACK TO THE BED FROM THE RESTROOM. PT C/O PAIN IN LEFT SIDE OF CHEST AND INTO HER LEFT ARM. SHE REPORTS THAT THE PAIN MEDICATION HELPED SOME WHILE SHE WAS ASLEEP. OXYGEN NC IS IN PLACE AND ICE CHIPS PROVIDED PER REQUEST.
[2020-11-03 22:36] LABS: URINE BLOOD DIPSTICK SMALL (NEGATIVE); URINE COLOR YELLOW; URINE GLUCOSE - DIPSTICK NEGATIVE (NEGATIVE); URINE KETONE TRACE mg/dL (NEGATIVE); URINE LEUK ESTERASE MODERATE (Negative); URINE NITRITE - DIPSTICK NEGATIVE (Negative); URINE PH 6.5 (4.5-8.0); URINE PROTEIN - DIPSTICK >=300 mg/dL (NEG-TRACE); URINE SPECIFIC GRAVITY 1.015; URINE UROBILINOGEN - DIPSTICK 0.2 E.U./dL (0.2)
[2020-11-03 22:37] LABS: URINE BILIRUBIN - DIPSTICK SMALL (NEGATIVE); URINE CLARITY SL CLOUDY; URINE RBC 0-2 RBC/hpf (0-5)
[2020-11-03 22:38] LABS: URINE SQUAMOUS EPITHELIAL CELL MANY EPI/hpf (0-FEW)
[2020-11-03 23:42] VITALS: BP 130/78
--- NOTE | 2020-11-03 23:53 | NUR ---
PT MEDICATED FOR SLEEP AIDE AND POC DISCUSSED.
[2020-11-04 03:17] VITALS: BP 95/67
--- NOTE | 2020-11-04 03:25 | NUR ---
DIRECTOR CUSTOMER REPORTS OXYGEN SAT LEVELS 88-89% WITH NC IN PLACE. PT WAS SLEEPING ON HER LEFT SIDE. OXYGEN INCREASED TO 4L AND WILL REASSESS.
[2020-11-04 07:46] VITALS: BP 107/68
[2020-11-04 07:59] LABS: HEMATOCRIT 32.7 % (37.0-47.0); HEMOGLOBIN 9.7 g/dl (12.0-16.0); MEAN CELL VOLUME 96.2 fL CALC (80.0-100.0); MEAN CORPUSCULAR HGB 28.5 pG CALC (26.0-32.0); MEAN CORPUSCULAR HGB CONC 29.7 g/dL CAL (32.0-36.0); RED BLOOD COUNT 3.4 mill/uL (4.20-5.60); RED CELL DISTRI WIDTH 17.2 % (11.5-15.5)
[2020-11-04 08:10] LABS: MAGNESIUM 2.1 mg/dL (1.6-2.3); POTASSIUM 4.4 mmol/l (3.5-5.1)
[2020-11-04 08:14] LABS: CREATININE 8.8 mg/dL (0.5-1.0)
--- NOTE | 2020-11-04 09:00 | NUR ---
PT ALERT AND ORIENTED X 3. LUNGS CLEAR, 6 LPM NC 91%. ABDOMEN SOFT, BENIGN, BM YESTERDAY. NO COMPLAINT OF CHEST PAIN, ALTHOUGH SHE DESCRIBES LEFT ARM AND SHOULDER DISCOMFORT. PT AMBULATORY IN ROOM DESIRED.
[2020-11-04 12:02] VITALS: BP 99/56
--- NOTE | 2020-11-04 14:37 | NUR ---
DR ÁLVAREZ ORDERED CTA ON PT, BUT NURSING UNABLE TO ESTABLISH 20 GAUGE IN AC OR HIGHER. TEST PLACED ON HOLD. PT WITH DAUGHTER AT BEDSIDE.
[2020-11-04 16:00] VITALS: BP 106/69
--- NOTE | 2020-11-04 16:23 | NUR ---
PT REMAINS AT REST IN THE BED, NO DISTRESS. PT AWARE OF CANCELLED CTA, STATES THAT SHE HAD ONE RECENTLY AT [facility].
[2020-11-04 18:25] VITALS: BP 118/73
--- NOTE | 2020-11-04 20:44 | NUR ---
pt is slumped down in the bed, i offered to assist her in repositioning for comfort/refused. she asked when she was able to get her pain medication, i informed her that i could bring it right away. she asked for me to get an order for iv pain meds. physician systems management consultant notified at this time. will await new orders.
--- NOTE | 2020-11-04 21:13 | NUR ---
PT MEDICATED FOR PAIN 7/10 ON PAIN SCALE GENERALIZED AND MID STERNAL. SHE ASKED FOR ME TO MAKE THE MAN DOWN THE FERRARO TO QUIT YELLING, I OFFERED TO CLOSE HER DOOR, BUT SHE REPORTED IT MAKES HER FEEL CLOSED IN. IF IT CONTINUES TO BE AN ISSUE WE WILL MOVE HER ROOMS. NO OTHER S/O DISTRESS NOTED. ICE WATER PROVIDED, SHE ALSO HAS ICE TEA AT BEDSIDE.
[2020-11-05] VITALS: BP 112/72
--- NOTE | 2020-11-05 00:52 | NUR ---
PT APPEARS TO BE SLEEPING, NO S/O DISTRESS NOTED. RESP ARE EVEN AND NON-LABORED. CALL LIGHT W/IN REACH.
--- NOTE | 2020-11-05 02:25 | NUR ---
PT APPEARS TO BE SLEEPING AT THIS TIME. NO S/O DISTRESS NOTED. RESP EVEN AND NON-LABORED.
[2020-11-05 04:00] VITALS: BP 94/59
--- NOTE | 2020-11-05 04:30 | NUR ---
LAB PHL REPORTED THAT THE PT REFUSED TO HAVE LABS DRAWN UNLESS THEY CAN BE DRAWN FROM EXISTING IV SITE.
--- NOTE | 2020-11-05 06:10 | NUR ---
PT CALLED TO ASK ABOUT HER LABS BEING DRAWN STATING SHE WAS CONCERNED ABOUT THEM BEING DONE. FELLOW NURSE ON UNIT TALKED WITH HER AND INFORMED HER THAT LAB WOULD BE BACK UP THIS MORNING FIRST THING TO DRAW.
--- NOTE | 2020-11-05 07:00 | NUR ---
RECIEVED REPORT FROM BRADLEY MADDOX
[2020-11-05 07:53] VITALS: BP 109/69
--- NOTE | 2020-11-05 07:53 | NUR ---
PT RESTING IN SEMI FOWLERS POSITION. PT IS A/O X3. ASSESSMENT AND VITALS COMPLETED. BP 109/69, HR 85, O2 88% ON 5L NC.RT CALLED FOR HIGH FLOW O2 TUBING. RESPIRATIONS ARE EVEN AND UNLABORED WITH NO DISTRESS NOTED.PT DENIES ANY SOB. LUNG SOUNDS ARE CLEAR. HEART RHYTHM IS NORMAL WITH TELE IN PLACE, SR PER ER MONITORING. BOWEL SOUNDS ARE ACTIVE. RADIAL AND PEDAL PULSES STRONG. #20G LW INFUSING WITH IVF PER ORDER, SITE REMAINS HEALTHY AND PATENT. SKIN INTACT. PT DENIES OF ANY PAINS AT THIS TIME. PT STATES SHE FEELS FINE. Tamara MENA NOTIFIED. OF PT STATUS. ALL SAFETY PRECAUTIONS ARE IN PLACE WITH CALL LIGHT IN REACH. WILL CONTINUE TO MONITOR.
--- NOTE | 2020-11-05 08:28 | NUR ---
RT AT BEDSIDE
[2020-11-05] MEDS ORDERED: VELPHORO500 MG PO (08:45)
--- NOTE | 2020-11-05 08:58 | NUR ---
BLOOD GAS COMPLETED BY RT. ANRP NOTIFIED OF RESULTS.
--- NOTE | 2020-11-05 09:10 | NUR ---
PT RESTING INS LULY FOWLERS POSITION. RESPIRATIONS ARE EVEN AND UNLABORED. PT DENIES SOB AT THIS TIME. O2 SAT 91% ON 9L HIGH FLOW HUMIDIFIED. ANRP NOTIFIED. WILL CONTINUE TO MONITOR.
--- NOTE | 2020-11-05 09:30 | NUR ---
DR ÁLVAREZ AT BEDSIDE
--- NOTE | 2020-11-05 10:30 | NUR ---
ORDERS TO TRANSFER TO [facility]. PT AND DAUGHTER NOTIFIED.
[2020-11-05 11:09] VITALS: BP 112/73
[2020-11-05 11:13] LABS: HEMATOCRIT 30.3 % (37.0-47.0); HEMOGLOBIN 9.4 g/dl (12.0-16.0); IMMATURE GRANULOCYTES 2.1 % (0.0-5.0); MEAN CELL VOLUME 92.7 fL CALC (80.0-100.0); MEAN CORPUSCULAR HGB 28.7 pG CALC (26.0-32.0); NEUT# 11.15 thou/uL (2.00-7.15); RED BLOOD COUNT 3.27 mill/uL (4.20-5.60); RED CELL DISTRI WIDTH 16.5 % (11.5-15.5)
[2020-11-05 11:54] LABS: ALBUMIN 3.7 g/dL (3.2-5.0); BILIRUBIN, TOTAL 0.7 mg/dL (0.0-1.4); TOTAL PROTEIN 7.4 g/dL (6.3-8.2)
[2020-11-05 12:04] LABS: CREATININE 10.5 mg/dL (0.5-1.0); POTASSIUM 4.6 mmol/l (3.5-5.1)
--- NOTE | 2020-11-05 12:17 | NUR ---
PT AND DAUGHTER UPDATE ON TRANSFER STATUS. BOTH VERBLAIZED UNDERSTANDING. CONSENT TO TRANSFER OBTAINED. PT AND DAUGHTER DENIES ANY QUESTIONS AT THIS TIME. RESPIRATIONS ARE EVEN AND UNLABORED WITH NO DISTRESS NOTED ON 9L NC. TELE MONITORING IN PLACE. #20G LW REMAINS IN PLACE. PT DENIES OF ANY PAINS AT THIS TIME. ALL SAFETY PRECAUTIONS ARE IN PLACE WITH CARLA LIGHT INR EACH. WILL CONTINUE TO MONTIOR.
--- NOTE | 2020-11-05 13:53 | NUR ---
PT SLEEPING IN SEMI FOWLERS POSITION. RESPIRATIONS ARE EVEN AND UNLABOED ON 9L HIGH FLOW NC. #20G LW REMAINS IN PLACE. NO SIGNS OF ANY PAINS OR DISCOMFORTS. TRANSFER TO [facility] IN PROCESS. WAITING FOR ROOM. WILL CONTINUE TO MONITOR.
[2020-11-05 15:18] VITALS: BP 116/73
--- NOTE | 2020-11-05 15:27 | NUR ---
O2 SAT 83% ON 9L NC. O2 INCREASED TO 12L HIGH FLOW NC. O2 SAT 93%. RESPIRAITONS ARE EVEN AND UNLABOED WITH NO DISTRESS NOTED. PT DENIES ANY INCREASE SOB. DR ÁLVAREZ CALLED. NO ANSWER. VOICE MAIL LEFT. WILL CONTINUE TO MONITOR.
--- NOTE | 2020-11-05 15:57 | NUR ---
CALLED [facility] AT SPOKE TO AIDAN GAVE HER INFORMATION REGARDING THIS PT. STATED SHE WILL HAVE A CREW HERE IN 30 MINUTES.
--- NOTE | 2020-11-05 16:00 | NUR ---
RECIEVED ROOM 888. [facility] CALLED. ETA OF 30 MIN. PT AND DAUGHTER NOTIFIED.
--- NOTE | 2020-11-05 16:20 | NUR ---
RECIEVED CALL BACK FROM DR. ÁLVAREZ. NOTIFIED OF RECIEVING ROOM .
--- NOTE | 2020-11-05 16:50 | NUR ---
PT TRANSPORTED TO [facility] VIA [facility] IN STABLE CONDITION . ALL TRANSFER PAPERWORK, PT BELONINGS AND HOME MEDICATION LEFT WITH PT.
--- NOTE | 2020-11-05 17:05 | NUR ---
ATTEMPTED TO CALL REPORT. NURSE NOT AVAILABLE. CALL TO BE RETURNED.
--- NOTE | 2020-11-05 17:22 | NUR ---
REPORTED GIVEN TO BRADLEY VITAL AT [facility].
== END 2020-11-05 16:51 | disposition short-term general hospital (02) | DRG 189 ==
LOC: ED 14:09 → ED-I 16:19 → ED 16:29 → MS2 16:30
PROVIDERS: Physician Assistant; ADMIT Internal Medicine; ATTEND Internal Medicine
DX: J96.00 Acute respiratory failure, unspecified whether with hypoxia or hypercapnia (principal); N18.6 End stage renal disease; I12.0 Hypertensive chronic kidney disease with stage 5 chronic kidney disease or end stage renal disease; R07.89 Other chest pain; D72.829 Elevated white blood cell count, unspecified; I25.10 Atherosclerotic heart disease of native coronary artery without angina pectoris; E78.5 Hyperlipidemia, unspecified; I51.7 Cardiomegaly; K21.9 Gastro-esophageal reflux disease without esophagitis; T45.516A Underdosing of anticoagulants, initial encounter; Z91.128 Patient's intentional underdosing of medication regimen for other reason; Z95.5 Presence of coronary angioplasty implant and graft; Z95.0 Presence of cardiac pacemaker; Z79.01 Long term (current) use of anticoagulants; Z99.2 Dependence on renal dialysis; Z20.822 Contact with and (suspected) exposure to COVID-19
CPT/HCPCS: G0378

== ENCOUNTER 2021-06-06 12:11 | Emergency (ER) | payer MEDICARE, OTHER ==
[~2021-06-06] VITALS: Ht 162.6 cm; Wt 86.0 kg
[~2021-06-06 12:11] MED LIST changes: +ASPIRIN/ENTERIC81 MG PO; +DIALYVIT2 PO; +DRISDOL50000 UNIT PO; +ELIQUIS2.5 MG PO; +FERROUS SULFAT324 MG PO; +NORMODYNE/TRAN100 MG PO; +PROTONIX40 M2 PO; +RENAGEL 800MG800 MG PO; +VELPHORO500 MG PO
[2021-06-06 14:06] LABS: HEMATOCRIT 33.7 % (37.0-47.0); HEMOGLOBIN 10.1 g/dl (12.0-16.0); IMMATURE GRANULOCYTES 0.1 % (0.0-5.0); MEAN CELL VOLUME 89.6 fL CALC (80.0-100.0); MEAN CORPUSCULAR HGB 26.9 pG CALC (26.0-32.0); NEUT# 4.67 thou/uL (2.00-7.15); RED BLOOD COUNT 3.76 mill/uL (4.20-5.60)
[2021-06-06 14:17] LABS: POTASSIUM 4.4 mmol/l (3.5-5.1); TOTAL PROTEIN 8.3 g/dL (6.3-8.2)
[2021-06-06 14:21] LABS: ALBUMIN 4.6 g/dL (3.2-5.0); BILIRUBIN, TOTAL 0.3 mg/dL (0.0-1.4); CREATININE 12.8 mg/dL (0.5-1.0)
[2021-06-06 14:53] VITALS: BP 165/89
== END 2021-06-06 15:11 | disposition home or self-care (01) ==
LOC: ED 12:11
PROVIDERS: Family Medicine
DX: R25.2 Cramp and spasm (principal); I12.0 Hypertensive chronic kidney disease with stage 5 chronic kidney disease or end stage renal disease; N18.6 End stage renal disease; K21.9 Gastro-esophageal reflux disease without esophagitis; E78.5 Hyperlipidemia, unspecified; Z95.5 Presence of coronary angioplasty implant and graft; Z99.2 Dependence on renal dialysis; Z95.0 Presence of cardiac pacemaker; Z86.73 Personal history of transient ischemic attack (TIA), and cerebral infarction without residual deficits

== ENCOUNTER 2021-11-05 09:23 | Emergency (ER) | payer MEDICARE, OTHER ==
[~2021-11-05] VITALS: Ht 162.6 cm; Wt 85.1 kg
[2021-11-05 09:28] VITALS: BP 154/89
[2021-11-05 09:45] VITALS: BP 178/92
[2021-11-05 09:54] LABS: HEMATOCRIT 35.9 % (37.0-47.0); HEMOGLOBIN 11.1 g/dl (12.0-16.0); IMMATURE GRANULOCYTES 0.2 % (0.0-5.0); MEAN CELL VOLUME 88.2 fL CALC (80.0-100.0); MEAN CORPUSCULAR HGB 27.3 pG CALC (26.0-32.0); MEAN CORPUSCULAR HGB CONC 30.9 g/dL CAL (32.0-36.0); NEUT# 3.5 thou/uL (2.00-7.15); RED BLOOD COUNT 4.07 mill/uL (4.20-5.60); RED CELL DISTRI WIDTH 16.7 % (11.5-15.5)
[2021-11-05 10:34] LABS: BILIRUBIN, TOTAL 0.4 mg/dL (0.0-1.4); POTASSIUM 4.8 mmol/l (3.5-5.1); TOTAL PROTEIN 7.3 g/dL (6.3-8.2)
[2021-11-05 10:38] LABS: CREATININE 12.6 mg/dL (0.5-1.0)
[2021-11-05 11:41] VITALS: BP 178/92
== END 2021-11-05 11:45 | disposition home or self-care (01) ==
LOC: ED 09:23
PROVIDERS: Family Medicine
DX: R42 Dizziness and giddiness (principal); I12.0 Hypertensive chronic kidney disease with stage 5 chronic kidney disease or end stage renal disease; N18.6 End stage renal disease; E78.5 Hyperlipidemia, unspecified; F32.A Depression, unspecified; Z99.2 Dependence on renal dialysis; Z86.73 Personal history of transient ischemic attack (TIA), and cerebral infarction without residual deficits; Z95.5 Presence of coronary angioplasty implant and graft; Z95.0 Presence of cardiac pacemaker; Z20.822 Contact with and (suspected) exposure to COVID-19

== ENCOUNTER 2021-12-28 15:09 | Observation (INO) | payer MEDICARE, OTHER ==
[~2021-12-28] VITALS: Ht 162.6 cm; Wt 83.4 kg
[2021-12-28] VITALS (9 sets, daily range): BP systolic 157–215; BP diastolic 78–113
[~2021-12-28 15:09] MED LIST changes: -AMIODARONE200 MG PO; -DRISDOL50000 UNIT PO; -ELIQUIS2.5 MG PO; -FERROUS SULFAT324 MG PO; -NORMODYNE/TRAN100 MG PO; -PROTONIX40 M2 PO; -RENAGEL 800MG800 MG PO; -VITAMIN C500 M1 PO
[2021-12-28 15:57] LABS: HEMATOCRIT 34.3 % (37.0-47.0); IMMATURE GRANULOCYTES 0.2 % (0.0-5.0); MEAN CELL VOLUME 85.3 fL CALC (80.0-100.0); MEAN CORPUSCULAR HGB 27.4 pG CALC (26.0-32.0); MEAN CORPUSCULAR HGB CONC 32.1 g/dL CAL (32.0-36.0); NEUT# 3.33 thou/uL (2.00-7.15); RED BLOOD COUNT 4.02 mill/uL (4.20-5.60)
[2021-12-28 16:15] LABS: ALBUMIN 4.4 g/dL (3.2-5.0); MAGNESIUM 2.1 mg/dL (1.6-2.3); POTASSIUM 4.7 mmol/l (3.5-5.1); TOTAL PROTEIN 8.2 g/dL (6.3-8.2)
[2021-12-28 16:16] LABS: BILIRUBIN, TOTAL 0.8 mg/dL (0.0-1.4); CREATININE 6.9 mg/dL (0.5-1.0)
[2021-12-28] MEDS ORDERED: XANAX1 MG PO (19:47)
[2021-12-28 20:08] LABS: URINE BILIRUBIN - DIPSTICK NEGATIVE (NEGATIVE); URINE BLOOD DIPSTICK SMALL (NEGATIVE); URINE COLOR YELLOW; URINE GLUCOSE - DIPSTICK NEGATIVE (NEGATIVE); URINE KETONE NEGATIVE (NEGATIVE); URINE LEUK ESTERASE TRACE (NEGATIVE); URINE PROTEIN - DIPSTICK >=300 mg/dL (NEG-TRACE); URINE UROBILINOGEN - DIPSTICK 0.2 E.U./dL (0.2)
[2021-12-28 20:11] LABS: URINE NITRITE - DIPSTICK NEGATIVE (Negative)
[2021-12-28 20:14] LABS: URINE BACTERIA FEW hpf; URINE SQUAMOUS EPITHELIAL CELL MANY EPI/hpf (0-FEW)
[2021-12-29] VITALS (8 sets, daily range): BP systolic 152–177; BP diastolic 63–94
[2021-12-29 05:49] LABS: ALBUMIN 4.1 g/dL (3.2-5.0); POTASSIUM 4.6 mmol/l (3.5-5.1)
[2021-12-29 06:01] LABS: CREATININE 9.1 mg/dL (0.5-1.0)
[2021-12-29] MEDS ORDERED: OXYCONTIN10 MG PO (09:43)
[2021-12-29] MEDS ORDERED: VENLAFAXINE HCL75 M1 PO ×2 (09:43→09:45)
[2021-12-29] MEDS ORDERED: CORDARONE/200 MG/TAB PO (12:40)
[2021-12-29] MEDS ORDERED: FERROUS SULFAT325 MG PO (12:40)
[2021-12-29] MEDS ORDERED: NORMODYNE/TRAN100 MG PO (12:41)
[2021-12-29] MEDS ORDERED: ELIQUIS2.5 MG PO (12:41)
[2021-12-29] MEDS ORDERED: VITAMIN C500 M1 PO (12:41)
[2021-12-29] MEDS ORDERED: PROTONIX40 M2 PO (12:41)
[2021-12-29] MEDS ORDERED: DRISDOL50000 UNIT PO (12:42)
[2021-12-29] MEDS ORDERED: RENAGEL 800MG800 MG PO (12:42)
[2021-12-30] VITALS: BP 177/87
[2021-12-30 04:00] VITALS: BP 165/74
[2021-12-30 04:03] VITALS: BP 165/74
[2021-12-30 06:21] LABS: ALBUMIN 3.9 g/dL (3.2-5.0); POTASSIUM 5.1 mmol/l (3.5-5.1)
[2021-12-30 06:23] LABS: CREATININE 10.9 mg/dL (0.5-1.0)
[2021-12-30 07:15] VITALS: BP 163/84
[2021-12-30] MEDS ORDERED: KEFLEX500 MG PO (10:59)
[2021-12-30 11:26] VITALS: BP 194/95
== END 2021-12-30 12:49 | disposition home or self-care (01) ==
LOC: ED 15:09 → ED-I 18:00 → ED 18:38 → MS2 18:38
PROVIDERS: Internal Medicine; ADMIT Internal Medicine; ATTEND Internal Medicine
DX: R41.82 Altered mental status, unspecified (principal); R41.3 Other amnesia; N39.0 Urinary tract infection, site not specified; I12.0 Hypertensive chronic kidney disease with stage 5 chronic kidney disease or end stage renal disease; N18.6 End stage renal disease; D63.1 Anemia in chronic kidney disease; N25.81 Secondary hyperparathyroidism of renal origin; I48.91 Unspecified atrial fibrillation; E78.5 Hyperlipidemia, unspecified; F41.9 Anxiety disorder, unspecified; F32.A Depression, unspecified; Z99.2 Dependence on renal dialysis; Z86.73 Personal history of transient ischemic attack (TIA), and cerebral infarction without residual deficits; Z95.5 Presence of coronary angioplasty implant and graft; Z95.0 Presence of cardiac pacemaker; Z20.822 Contact with and (suspected) exposure to COVID-19
CPT/HCPCS: G0378

== ENCOUNTER 2022-02-01 15:07 | Emergency (ER) | payer MEDICARE, OTHER ==
[~2022-02-01] VITALS: Ht 162.6 cm; Wt 81.8 kg
[2022-02-01] VITALS (7 sets, daily range): BP systolic 167–201; BP diastolic 95–113
[~2022-02-01 15:07] MED LIST changes: +CORDARONE/200 MG/TAB PO; +DRISDOL50000 UNIT PO; +ELIQUIS2.5 MG PO; +FERROUS SULFAT325 MG PO; +NORMODYNE/TRAN100 MG PO; +OXYCONTIN10 MG PO; +PROTONIX40 M2 PO; +RENAGEL 800MG800 MG PO; +VENLAFAXINE HCL75 M1 PO; +VITAMIN C500 M1 PO; +XANAX1 MG PO
[2022-02-01 15:55] LABS: HEMATOCRIT 36.6 % (37.0-47.0); HEMOGLOBIN 11.6 g/dl (12.0-16.0); IMMATURE GRANULOCYTES 0.3 % (0.0-5.0); MEAN CELL VOLUME 88.2 fL CALC (80.0-100.0); MEAN CORPUSCULAR HGB CONC 31.7 g/dL CAL (32.0-36.0); NEUT# 4.4 thou/uL (2.00-7.15); RED BLOOD COUNT 4.15 mill/uL (4.20-5.60); RED CELL DISTRI WIDTH 18.2 % (11.5-15.5)
[2022-02-01 16:10] LABS: BILIRUBIN, TOTAL 0.9 mg/dL (0.0-1.4); TOTAL PROTEIN 8.4 g/dL (6.3-8.2)
[2022-02-01 16:11] LABS: ALBUMIN 4.7 g/dL (3.2-5.0); CREATININE 7.4 mg/dL (0.5-1.0); POTASSIUM 3.9 mmol/l (3.5-5.1)
== END 2022-02-01 17:25 | disposition home or self-care (01) ==
LOC: ED 15:07
PROVIDERS: Emergency Medicine
DX: E16.2 Hypoglycemia, unspecified (principal); I12.0 Hypertensive chronic kidney disease with stage 5 chronic kidney disease or end stage renal disease; N18.6 End stage renal disease; Z99.2 Dependence on renal dialysis; K21.9 Gastro-esophageal reflux disease without esophagitis; E78.5 Hyperlipidemia, unspecified; F32.A Depression, unspecified; Z95.5 Presence of coronary angioplasty implant and graft; Z86.73 Personal history of transient ischemic attack (TIA), and cerebral infarction without residual deficits; Z95.0 Presence of cardiac pacemaker

== ENCOUNTER 2022-02-12 13:46 | Emergency (ER) | payer MEDICARE, OTHER ==
[~2022-02-12] VITALS: Ht 167.6 cm; Wt 80.0 kg
[2022-02-12] VITALS (9 sets, daily range): BP systolic 167–187; BP diastolic 91–97
[2022-02-12 14:23] LABS: URINE BILIRUBIN - DIPSTICK NEGATIVE (NEGATIVE); URINE BLOOD DIPSTICK SMALL (NEGATIVE); URINE COLOR YELLOW; URINE GLUCOSE - DIPSTICK 100 mg/dL (NEGATIVE); URINE KETONE NEGATIVE (NEGATIVE); URINE LEUK ESTERASE TRACE (NEGATIVE); URINE PROTEIN - DIPSTICK >=300 mg/dL (NEG-TRACE); URINE UROBILINOGEN - DIPSTICK 0.2 E.U./dL (0.2)
[2022-02-12 14:23] LABS: HEMATOCRIT 33.2 % (37.0-47.0); HEMOGLOBIN 10.1 g/dl (12.0-16.0); IMMATURE GRANULOCYTES 0.1 % (0.0-5.0); MEAN CORPUSCULAR HGB 28.5 pG CALC (26.0-32.0); MEAN CORPUSCULAR HGB CONC 30.4 g/dL CAL (32.0-36.0); NEUT# 7.19 thou/uL (2.00-7.15); RED BLOOD COUNT 3.55 mill/uL (4.20-5.60); RED CELL DISTRI WIDTH 18.5 % (11.5-15.5)
[2022-02-12 14:25] LABS: URINE NITRITE - DIPSTICK NEGATIVE (Negative)
[2022-02-12 14:27] LABS: URINE EPITHELIAL CELLS MODERATE EPI/hpf (0-FEW); URINE RBC 0-2 RBC/hpf (0-5)
[2022-02-12 14:40] LABS: MEAN CELL VOLUME 93.5 fL CALC (80.0-100.0)
[2022-02-12 14:47] LABS: ALBUMIN 4.3 g/dL (3.2-5.0); BILIRUBIN, TOTAL 0.6 mg/dL (0.0-1.4); TOTAL PROTEIN 7.1 g/dL (6.3-8.2)
[2022-02-12 15:25] LABS: CREATININE 15.5 mg/dL (0.5-1.0); POTASSIUM 6.4 mmol/l (3.5-5.1)
== END 2022-02-12 20:00 | disposition short-term general hospital (02) ==
LOC: ED 13:46
PROVIDERS: Nurse Practitioner
DX: I12.0 Hypertensive chronic kidney disease with stage 5 chronic kidney disease or end stage renal disease (principal); N18.6 End stage renal disease; E87.5 Hyperkalemia; Z99.2 Dependence on renal dialysis; K21.9 Gastro-esophageal reflux disease without esophagitis; E78.5 Hyperlipidemia, unspecified; F32.A Depression, unspecified; Z95.5 Presence of coronary angioplasty implant and graft; Z95.0 Presence of cardiac pacemaker; Z86.73 Personal history of transient ischemic attack (TIA), and cerebral infarction without residual deficits; Z20.822 Contact with and (suspected) exposure to COVID-19

== ENCOUNTER 2022-04-01 00:46 | Inpatient (IN) | payer MEDICARE, OTHER ==
[~2022-04-01] VITALS: Ht 167.6 cm; Wt 74.4 kg
[2022-04-01] VITALS (16 sets, daily range): BP systolic 103–204; BP diastolic 72–114
[2022-04-01 01:34] LABS: HEMATOCRIT 31.7 % (37.0-47.0); IMMATURE GRANULOCYTES 0.2 % (0.0-5.0); MEAN CELL VOLUME 93.5 fL CALC (80.0-100.0); MEAN CORPUSCULAR HGB 29.5 pG CALC (26.0-32.0); MEAN CORPUSCULAR HGB CONC 31.5 g/dL CAL (32.0-36.0); NEUT# 8.41 thou/uL (2.00-7.15); RED BLOOD COUNT 3.39 mill/uL (4.20-5.60); RED CELL DISTRI WIDTH 16.6 % (11.5-15.5)
[2022-04-01 01:44] LABS: ALBUMIN 4.1 g/dL (3.2-5.0); ALKALINE PHOSPHATASE 62 u/l (38-126); ANION GAP 20 (6-22 (CALC)); BILIRUBIN, TOTAL 0.6 mg/dL (0.0-1.4); BUN 65 mg/dL (8-23); CARBON DIOXIDE 23 mmol/l (22-30); CHLORIDE 105 mmol/l (95-108); SGOT/AST 23 u/l (9-36); SODIUM 143 mmol/l (137-146); TOTAL PROTEIN 7.4 g/dL (6.3-8.2)
[2022-04-01 01:46] LABS: BUN/CREATININE RATIO 6 (12-20 (CALC)); CREATININE 10.8 mg/dL (0.5-1.0); GFR FOR AFR.AMER. 4 ML/MIN (>=60 (CALC)); GFR OTHER RACES 4 ML/MIN (>=60 (CALC)); POTASSIUM 5.4 mmol/l (3.5-5.1)
[2022-04-02 00:10] VITALS: BP 162/95
[2022-04-02 04:45] VITALS: BP 171/95
[2022-04-02 06:05] VITALS: BP 128/83
[2022-04-02 07:40] LABS: HEMATOCRIT 33.4 % (37.0-47.0); HEMOGLOBIN 10.3 g/dl (12.0-16.0); IMMATURE GRANULOCYTES 0.1 % (0.0-5.0); MEAN CELL VOLUME 95.2 fL CALC (80.0-100.0); MEAN CORPUSCULAR HGB 29.3 pG CALC (26.0-32.0); MEAN CORPUSCULAR HGB CONC 30.8 g/dL CAL (32.0-36.0); NEUT# 6.8 thou/uL (2.00-7.15); RED BLOOD COUNT 3.51 mill/uL (4.20-5.60); RED CELL DISTRI WIDTH 16.7 % (11.5-15.5)
[2022-04-02 07:57] LABS: ALBUMIN 4.7 g/dL (3.2-5.0); BILIRUBIN, TOTAL 0.6 mg/dL (0.0-1.4); TOTAL PROTEIN 8.2 g/dL (6.3-8.2)
[2022-04-02 08:05] LABS: CREATININE 8.2 mg/dL (0.5-1.0); POTASSIUM 6.3 mmol/l (3.5-5.1)
[2022-04-02 10:35] VITALS: BP 120/78
[2022-04-02 14:40] VITALS: BP 157/82
[2022-04-02 19:21] VITALS: BP 147/85
[2022-04-03] VITALS (7 sets, daily range): BP systolic 113–160; BP diastolic 80–93
[2022-04-03 05:47] LABS: HEMATOCRIT 29.3 % (37.0-47.0); HEMOGLOBIN 9.2 g/dl (12.0-16.0); IMMATURE GRANULOCYTES 0.2 % (0.0-5.0); MEAN CELL VOLUME 94.5 fL CALC (80.0-100.0); MEAN CORPUSCULAR HGB 29.7 pG CALC (26.0-32.0); MEAN CORPUSCULAR HGB CONC 31.4 g/dL CAL (32.0-36.0); NEUT# 5.95 thou/uL (2.00-7.15); RED BLOOD COUNT 3.1 mill/uL (4.20-5.60); RED CELL DISTRI WIDTH 16.2 % (11.5-15.5)
[2022-04-03 06:13] LABS: ALBUMIN 4.3 g/dL (3.2-5.0); BILIRUBIN, TOTAL 0.6 mg/dL (0.0-1.4); TOTAL PROTEIN 7.8 g/dL (6.3-8.2)
[2022-04-03 06:20] LABS: CREATININE 10.5 mg/dL (0.5-1.0)
[2022-04-03 06:21] LABS: POTASSIUM 5.4 mmol/l (3.5-5.1)
[2022-04-03] MEDS ORDERED: DOXYCYCLINE100 MG PO (12:10)
[2022-04-04 04:09] VITALS: BP 176/88
[2022-04-04 07:24] VITALS: BP 146/83
[2022-04-04 10:54] VITALS: BP 138/81
[2022-04-04 14:37] VITALS: BP 134/72
[2022-04-04 15:20] VITALS: BP 134/72
[2022-04-05] MEDS ORDERED: OMNICEF300 M1 PO ×2 (11:23→11:29)
== END 2022-04-04 15:01 | DRG 193 ==
LOC: ED 00:46 → ED-I 02:00 → ED 02:47 → MS2 02:48
PROVIDERS: Emergency Medicine; Nurse Practitioner Family; ADMIT Internal Medicine; ATTEND Internal Medicine
PROC: 5A1D70Z Performance of Urinary Filtration, Intermittent, Less than 6 Hours Per Day (ICD-10-PCS; principal; 2022-04-01)
PROC: 5A1D70Z Performance of Urinary Filtration, Intermittent, Less than 6 Hours Per Day (ICD-10-PCS; 2022-04-03)
DX: J18.9 Pneumonia, unspecified organism (principal); J96.01 Acute respiratory failure with hypoxia; N18.6 End stage renal disease; I12.0 Hypertensive chronic kidney disease with stage 5 chronic kidney disease or end stage renal disease; N25.81 Secondary hyperparathyroidism of renal origin; I48.91 Unspecified atrial fibrillation; J40 Bronchitis, not specified as acute or chronic; E87.5 Hyperkalemia; D63.1 Anemia in chronic kidney disease; E78.5 Hyperlipidemia, unspecified; F32.A Depression, unspecified; F41.9 Anxiety disorder, unspecified; Y95 Nosocomial condition; Z95.0 Presence of cardiac pacemaker; Z95.5 Presence of coronary angioplasty implant and graft; Z86.73 Personal history of transient ischemic attack (TIA), and cerebral infarction without residual deficits; Z99.2 Dependence on renal dialysis; Z20.822 Contact with and (suspected) exposure to COVID-19
CPT/HCPCS: J1644

== ENCOUNTER 2022-04-05 08:51 | Emergency (ER) | payer MEDICARE, OTHER ==
[~2022-04-05] VITALS: Ht 167.6 cm; Wt 72.5 kg
[~2022-04-05 08:51] MED LIST changes: +DOXYCYCLINE100 MG PO
[2022-04-05 09:09] VITALS: BP 155/91
[2022-04-05 09:33] LABS: HEMATOCRIT 30.9 % (37.0-47.0); HEMOGLOBIN 9.9 g/dl (12.0-16.0); IMMATURE GRANULOCYTES 0.2 % (0.0-5.0); MEAN CELL VOLUME 92.8 fL CALC (80.0-100.0); MEAN CORPUSCULAR HGB 29.7 pG CALC (26.0-32.0); NEUT# 4.05 thou/uL (2.00-7.15); RED BLOOD COUNT 3.33 mill/uL (4.20-5.60); RED CELL DISTRI WIDTH 15.7 % (11.5-15.5)
[2022-04-05 09:50] LABS: ALBUMIN 4.6 g/dL (3.2-5.0); BILIRUBIN, TOTAL 0.7 mg/dL (0.0-1.4); POTASSIUM 4.7 mmol/l (3.5-5.1); TOTAL PROTEIN 8.4 g/dL (6.3-8.2)
[2022-04-05 10:01] VITALS: BP 143/80
[2022-04-05 10:05] LABS: CREATININE 10.5 mg/dL (0.5-1.0)
[2022-04-05 10:24] LABS: URINE BILIRUBIN - DIPSTICK NEGATIVE (NEGATIVE); URINE BLOOD DIPSTICK MODERATE (NEGATIVE); URINE COLOR YELLOW; URINE GLUCOSE - DIPSTICK NEGATIVE (NEGATIVE); URINE KETONE TRACE mg/dL (NEGATIVE); URINE PROTEIN - DIPSTICK >=300 mg/dL (NEG-TRACE); URINE SPECIFIC GRAVITY 1.015; URINE UROBILINOGEN - DIPSTICK 0.2 E.U./dL (0.2)
[2022-04-05 10:26] LABS: URINE LEUK ESTERASE MODERATE (NEGATIVE); URINE NITRITE - DIPSTICK NEGATIVE (Negative)
[2022-04-05 10:30] VITALS: BP 154/94
[2022-04-05 10:31] LABS: URINE EPITHELIAL CELLS MANY EPI/hpf (0-FEW)
[2022-04-05 10:32] LABS: URINE BACTERIA FEW hpf
[2022-04-05 11:01] VITALS: BP 150/90
[2022-04-05] MEDS ORDERED: OMNICEF300 M1 PO ×2 (11:23→11:29)
[2022-04-05 11:31] VITALS: BP 157/96
== END 2022-04-05 11:49 | disposition home or self-care (01) ==
LOC: ED 08:51
PROVIDERS: Family Medicine
DX: N39.0 Urinary tract infection, site not specified (principal); I12.0 Hypertensive chronic kidney disease with stage 5 chronic kidney disease or end stage renal disease; N18.6 End stage renal disease; Z86.73 Personal history of transient ischemic attack (TIA), and cerebral infarction without residual deficits; F32.A Depression, unspecified; Z99.2 Dependence on renal dialysis; E78.5 Hyperlipidemia, unspecified; Z95.5 Presence of coronary angioplasty implant and graft; Z95.0 Presence of cardiac pacemaker; Z99.81 Dependence on supplemental oxygen

== ENCOUNTER 2022-08-11 15:06 | Emergency (ER) | payer MEDICARE, OTHER ==
[2022-08-11] VITALS (7 sets, daily range): BP systolic 151–194; BP diastolic 93–109
[~2022-08-11] VITALS: Ht 167.6 cm; Wt 78.8 kg
[~2022-08-11 15:06] MED LIST changes: +OMNICEF300 M1 PO
[2022-08-11 17:43] LABS: URINE BILIRUBIN - DIPSTICK NEGATIVE (NEGATIVE); URINE BLOOD DIPSTICK MODERATE (NEGATIVE); URINE COLOR YELLOW; URINE GLUCOSE - DIPSTICK NEGATIVE (NEGATIVE); URINE KETONE NEGATIVE (NEGATIVE); URINE PH 8.5 (4.5-8.0); URINE PROTEIN - DIPSTICK >=300 mg/dL (NEG-TRACE); URINE SPECIFIC GRAVITY 1.015; URINE UROBILINOGEN - DIPSTICK 0.2 E.U./dL (0.2)
[2022-08-11 17:47] LABS: URINE LEUK ESTERASE SMALL (NEGATIVE); URINE NITRITE - DIPSTICK NEGATIVE (Negative)
[2022-08-11 17:49] LABS: URINE SQUAMOUS EPITHELIAL CELL FEW EPI/hpf (0-FEW)
[2022-08-11] MEDS ORDERED: CIPROFLOXACN500 MG PO (19:55)
== END 2022-08-11 20:38 | disposition home or self-care (01) ==
LOC: ED 15:06
PROVIDERS: Family Medicine
DX: N39.0 Urinary tract infection, site not specified (principal); I12.0 Hypertensive chronic kidney disease with stage 5 chronic kidney disease or end stage renal disease; N18.6 End stage renal disease; F32.A Depression, unspecified; E78.5 Hyperlipidemia, unspecified; Z99.2 Dependence on renal dialysis; Z95.5 Presence of coronary angioplasty implant and graft; Z86.73 Personal history of transient ischemic attack (TIA), and cerebral infarction without residual deficits; Z95.0 Presence of cardiac pacemaker; Z20.822 Contact with and (suspected) exposure to COVID-19

== ENCOUNTER 2023-11-12 04:06 | Emergency (ER) | payer MEDICARE, MEDICAID ==
[~2023-11-12] VITALS: Ht 167.6 cm; Wt 84.0 kg
[~2023-11-12 04:06] MED LIST changes: +CIPROFLOXACN500 MG PO; +DOCUSATE SOD100 MG PO; +NORVASC10 M1 PO
[2023-11-12] MEDS ORDERED: IPRATROPIUM-Albuterol 0.5MG-2.5MG/3 ML NEB ONE (04:15)
[2023-11-12 05:20] VITALS: BP 146/78
[2023-11-12] MEDS ORDERED: ACETAMINOPHEN 500 MG TAB PO ONE (05:25)
[2023-11-12] MEDS ORDERED: traMADol HCL 50 MG/TAB PO ONE (05:25)
[2023-11-12 05:30] VITALS: BP 147/71
[2023-11-12 05:39] LABS: BASO% 0.2 % (0-3); EOS% 3.1 % (0-8); HEMATOCRIT 30.6 % (37.0-47.0); HEMOGLOBIN 9.5 g/dl (12.0-16.0); IMMATURE GRANULOCYTES 0.3 % (0.0-5.0); LYMPH% 11.2 % (15-41); MEAN CORPUSCULAR HGB 29.5 pG CALC (26.0-32.0); MONO% 8.2 % (2-13); NEUT# 7.53 thou/uL (2.00-7.15); RED BLOOD COUNT 3.22 mill/uL (4.20-5.60); RED CELL DISTRI WIDTH 17.2 % (11.5-15.5)
[2023-11-12 05:40] LABS: URINE BILIRUBIN - DIPSTICK Negative (NEGATIVE); URINE BLOOD DIPSTICK Small (NEGATIVE); URINE COLOR Yellow; URINE GLUCOSE - DIPSTICK Negative (NEGATIVE); URINE KETONE Negative (NEGATIVE); URINE LEUK ESTERASE Small (NEGATIVE); URINE NITRITE - DIPSTICK Negative (Negative); URINE PH 8.5 (4.5-8.0); URINE PROTEIN - DIPSTICK >=300 mg/dL (NEG-TRACE); URINE UROBILINOGEN - DIPSTICK 0.2 E.U./dL (0.2)
[2023-11-12 05:41] LABS: URINE BACTERIA MANY hpf; URINE SQUAMOUS EPITHELIAL CELL MANY EPI/hpf (0-FEW)
[2023-11-12 05:45] VITALS: BP 142/87
[2023-11-12 05:51] LABS: ALBUMIN 4.3 g/dL (3.2-5.0); BILIRUBIN, TOTAL 0.7 mg/dL (0.02-1.3); TOTAL PROTEIN 7.6 g/dL (6.3-8.2)
[2023-11-12 06:00] VITALS: BP 143/83
[2023-11-12 06:01] LABS: CREATININE 12.4 mg/dL (0.5-1.0); POTASSIUM 5.2 mmol/l (3.5-5.1)
[2023-11-12] MEDS ORDERED: SULFAMETHOXAZOLE W/TRIMETHOPRI 1 COMBO TAB PO ONE (06:05)
[2023-11-12] MEDS ORDERED: BACTRIM1 TAB PO (06:05)
[2023-11-12 06:28] VITALS: BP 143/83
== END 2023-11-12 06:29 | disposition home or self-care (01) ==
LOC: ED 04:06
PROVIDERS: Family Medicine
DX: E87.79 Other fluid overload (principal); N39.0 Urinary tract infection, site not specified; I12.0 Hypertensive chronic kidney disease with stage 5 chronic kidney disease or end stage renal disease; N18.6 End stage renal disease; K21.9 Gastro-esophageal reflux disease without esophagitis; E78.5 Hyperlipidemia, unspecified; Z99.2 Dependence on renal dialysis; Z91.119 Patient's noncompliance with dietary regimen due to unspecified reason; Z86.73 Personal history of transient ischemic attack (TIA), and cerebral infarction without residual deficits; Z95.5 Presence of coronary angioplasty implant and graft; Z95.0 Presence of cardiac pacemaker; Z20.822 Contact with and (suspected) exposure to COVID-19

== ENCOUNTER 2023-12-18 09:47 | Day surgery (SDC) | payer MEDICARE, MEDICAID ==
[~2023-12-18] VITALS: Ht 157.5 cm; Wt 83.9 kg
[~2023-12-18 09:47] MED LIST changes: +BACTRIM1 TAB PO; +ELIQUIS2.5 MG
[2023-12-18] MEDS ORDERED: ROSUVASTATIN CA10 MG PO (10:01)
[2023-12-18] MEDS ORDERED: ceFAZolin Sodium 2 GM/VIAL SDV ONE (10:06)
[2023-12-18] MEDS ORDERED: FAMOTIDINE 10MG/ML 2ML SDV IV ONE (10:06)
[2023-12-18] MEDS ORDERED: LACTATED RINGER'S 1,000 ML IV ONE (10:07)
[2023-12-18] MEDS ORDERED: SODIUM CHLORIDE 0.9% 50 ML IV ONE (10:07)
[2023-12-18] MEDS ORDERED: BUPIVACAINE HCL 0.25% 25 MG/10 ML SDV ONE (10:14)
[2023-12-18] MEDS ORDERED: BUPIVACAINE 133 MG/10 ML VIAL IJ ONE (10:15)
[2023-12-18] MEDS ORDERED: SODIUM CHLORIDE 20 ML/VIAL SDV ONE (10:16)
[2023-12-18] MEDS ORDERED: LIDOCAINE W/ EPINEPHRINE 10 MG/ML INJ ONE (10:56)
[2023-12-18] MEDS ORDERED: SODIUM CHLORIDE 0.9% 1,000 ML IV ONE (11:01)
[2023-12-18] MEDS ORDERED: HYDROmorphone HCL 2 MG/AMP ONE (11:53)
[2023-12-18 12:27] VITALS: BP 160/87
[2023-12-18] MEDS ORDERED: LIDOCAINE HCL 2% 2ML SDV IV ONE (13:55)
[2023-12-18] MEDS ORDERED: PROPOFOL 200 MG/20 ML VIAL IV ONE (13:55)
[2023-12-18] MEDS ORDERED: PERCOCET 5/321 COMBO PO (14:03)
== END 2023-12-18 12:38 | disposition home or self-care (01) ==
LOC: ORM 09:47
PROVIDERS: ATTEND Surgery
PROC: 06BY3ZC Excision of Hemorrhoidal Plexus, Percutaneous Approach (ICD-10-PCS; principal; 2023-12-18)
DX: K64.2 Third degree hemorrhoids (principal); I12.0 Hypertensive chronic kidney disease with stage 5 chronic kidney disease or end stage renal disease; N18.6 End stage renal disease; Z99.2 Dependence on renal dialysis; Z95.0 Presence of cardiac pacemaker
CPT/HCPCS: C9290; J0690

== ENCOUNTER 2024-05-24 00:39 | Emergency (ER) | payer MEDICARE, MEDICAID ==
[~2024-05-24] VITALS: Ht 157.5 cm; Wt 83.9 kg
[~2024-05-24 00:39] MED LIST changes: +PERCOCET 5/321 COMBO PO; +ROSUVASTATIN CA10 MG PO
[2024-05-24 00:48] VITALS: BP 159/90
[2024-05-24] MEDS ORDERED: IPRATROPIUM-Albuterol 0.5MG-2.5MG/3 ML NEB ONE (00:50)
[2024-05-24] MEDS ORDERED: methylPREDNISolone SODIUM SUCC 125 MG/2 ML SDV IV ONE (00:50)
[2024-05-24] MEDS ORDERED: HYDROcodone POLISTIREX/CHLORPH 5 ML UDC PO ONE (00:55)
[2024-05-24] MEDS ORDERED: BUMETANIDE 1 MG/4 ML VIAL IV ONE (00:55)
[2024-05-24 01:16] VITALS: BP 201/166
[2024-05-24 01:17] LABS: BASO% 0.2 % (0-3); EOS% 4.4 % (0-8); HEMATOCRIT 26.6 % (37.0-47.0); HEMOGLOBIN 8.2 g/dl (12.0-16.0); IMMATURE GRANULOCYTES 0.7 % (0.0-5.0); LYMPH% 10.6 % (15-41); MEAN CELL VOLUME 99.6 fL CALC (80.0-100.0); MEAN CORPUSCULAR HGB 30.7 pG CALC (26.0-32.0); MEAN CORPUSCULAR HGB CONC 30.8 g/dL CAL (32.0-36.0); MONO% 6.6 % (2-13); NEUT# 6.44 thou/uL (2.00-7.15); NEUT% 77.5 % (42-76); RED BLOOD COUNT 2.67 mill/uL (4.20-5.60); RED CELL DISTRI WIDTH 15.9 % (11.5-15.5)
[2024-05-24 01:34] LABS: ALBUMIN 4.1 g/dL (3.2-5.0); BILIRUBIN, TOTAL 0.7 mg/dL (0.02-1.3); POTASSIUM 4.8 mmol/l (3.5-5.1); TOTAL PROTEIN 7.1 g/dL (6.3-8.2)
[2024-05-24 01:44] LABS: CREATININE 11.5 mg/dL (0.5-1.0)
[2024-05-24 02:05] VITALS: BP 147/94
[2024-05-24 02:16] VITALS: BP 166/91
[2024-05-24 02:31] VITALS: BP 175/102
[2024-05-24] MEDS ORDERED: ZITHROMAX TRI-500 MG PO (02:33)
[2024-05-24] MEDS ORDERED: AZITHROMYCIN 250 MG/TAB PO ONE (02:35)
[2024-05-24 03:25] VITALS: BP 175/102
== END 2024-05-24 03:25 | disposition home or self-care (01) ==
LOC: ED 00:39
PROVIDERS: Family Medicine
DX: J40 Bronchitis, not specified as acute or chronic (principal); E87.70 Fluid overload, unspecified; I12.0 Hypertensive chronic kidney disease with stage 5 chronic kidney disease or end stage renal disease; N18.6 End stage renal disease; Z99.2 Dependence on renal dialysis; E78.5 Hyperlipidemia, unspecified; Z86.73 Personal history of transient ischemic attack (TIA), and cerebral infarction without residual deficits; Z95.5 Presence of coronary angioplasty implant and graft; Z95.0 Presence of cardiac pacemaker; Z20.822 Contact with and (suspected) exposure to COVID-19
CPT/HCPCS: J1939

== ENCOUNTER 2024-05-29 22:02 | Emergency (ER) | payer MEDICARE, MEDICAID ==
[~2024-05-29] VITALS: Ht 157.5 cm; Wt 84.1 kg
[~2024-05-29 22:02] MED LIST changes: +ZITHROMAX TRI-500 MG PO
[2024-05-29 22:10] VITALS: BP 148/84
[2024-05-29 22:16] VITALS: BP 141/75
[2024-05-29 22:55] LABS: BASO% 0.3 % (0-3); EOS% 5.2 % (0-8); HEMATOCRIT 25.4 % (37.0-47.0); HEMOGLOBIN 7.9 g/dl (12.0-16.0); IMMATURE GRANULOCYTES 0.4 % (0.0-5.0); LYMPH% 14.7 % (15-41); MEAN CORPUSCULAR HGB 31.1 pG CALC (26.0-32.0); MEAN CORPUSCULAR HGB CONC 31.1 g/dL CAL (32.0-36.0); NEUT# 5.73 thou/uL (2.00-7.15); NEUT% 72.4 % (42-76); RED BLOOD COUNT 2.54 mill/uL (4.20-5.60); RED CELL DISTRI WIDTH 16.1 % (11.5-15.5)
[2024-05-29 23:06] LABS: ALBUMIN 3.8 g/dL (3.2-5.0); BILIRUBIN, TOTAL 0.7 mg/dL (0.02-1.3); MAGNESIUM 2.1 mg/dL (1.6-2.3); POTASSIUM 4.3 mmol/l (3.5-5.1); TOTAL PROTEIN 6.9 g/dL (6.3-8.2)
[2024-05-29] MEDS ORDERED: FUROSEMIDE 40 MG/4 ML SDV IV ONE (23:10)
[2024-05-29 23:12] LABS: CREATININE 8.8 mg/dL (0.5-1.0)
[2024-05-29 23:15] VITALS: BP 135/74
[2024-05-29 23:31] VITALS: BP 133/67
[2024-05-29 23:46] VITALS: BP 118/68
[2024-05-30] VITALS: BP 115/69
[2024-05-30 00:15] VITALS: BP 119/73
[2024-05-30] MEDS ORDERED: AMOX/K CLAV875 M1 PO (00:26)
[2024-05-30 00:30] VITALS: BP 109/72
[2024-05-30 00:32] VITALS: BP 109/72
== END 2024-05-30 00:32 | disposition home or self-care (01) ==
LOC: ED 22:02
PROVIDERS: Family Medicine
DX: J18.9 Pneumonia, unspecified organism (principal); I12.0 Hypertensive chronic kidney disease with stage 5 chronic kidney disease or end stage renal disease; N18.6 End stage renal disease; E78.5 Hyperlipidemia, unspecified; Z99.2 Dependence on renal dialysis; Z87.891 Personal history of nicotine dependence; Z86.73 Personal history of transient ischemic attack (TIA), and cerebral infarction without residual deficits; Z95.5 Presence of coronary angioplasty implant and graft; Z95.0 Presence of cardiac pacemaker; Z20.822 Contact with and (suspected) exposure to COVID-19
CPT/HCPCS: J0696; J1940

== ENCOUNTER 2024-05-30 09:32 | Emergency (ER) | payer MEDICARE, MEDICAID ==
[~2024-05-30] VITALS: Ht 157.5 cm; Wt 83.0 kg
[2024-05-30] VITALS (21 sets, daily range): BP systolic 142–193; BP diastolic 81–103
[~2024-05-30 09:32] MED LIST changes: +AMOX/K CLAV875 M1 PO
--- NOTE | 2024-05-30 11:32 | NUR ---
PT PLACED ON 3L NC AT THIS TIME PER ABG RESULTS
[2024-05-30] MEDS ORDERED: VANCOMYCIN HCL 1 GM in SODIUM CHLORIDE 0.9% 500 ML IV ONE (11:35)
[2024-05-30] MEDS ORDERED: PIPERACILLIN Sodium-Tazobactam 3.375 GM in SODIUM CHLORIDE 0.9% 100 ML IV ONE (11:35)
[2024-05-30 12:24] LABS: BASO% 0.4 % (0-3); EOS% 4.3 % (0-8); HEMATOCRIT 27.6 % (37.0-47.0); HEMOGLOBIN 8.4 g/dl (12.0-16.0); IMMATURE GRANULOCYTES 0.4 % (0.0-5.0); MEAN CELL VOLUME 99.6 fL CALC (80.0-100.0); MEAN CORPUSCULAR HGB 30.3 pG CALC (26.0-32.0); MEAN CORPUSCULAR HGB CONC 30.4 g/dL CAL (32.0-36.0); MONO% 8.8 % (2-13); NEUT# 6.28 thou/uL (2.00-7.15); NEUT% 74.1 % (42-76); RED BLOOD COUNT 2.77 mill/uL (4.20-5.60); RED CELL DISTRI WIDTH 16.3 % (11.5-15.5)
[2024-05-30 12:35] LABS: ALBUMIN 4.1 g/dL (3.2-5.0); BILIRUBIN, TOTAL 0.7 mg/dL (0.02-1.3); POTASSIUM 4.7 mmol/l (3.5-5.1); TOTAL PROTEIN 7.3 g/dL (6.3-8.2)
[2024-05-30 12:43] LABS: CREATININE 10.5 mg/dL (0.5-1.0)
[2024-05-30] MEDS ORDERED: SODIUM CHLORIDE 0.9% 250 ML IV PRN (14:35)
[2024-05-30] MEDS ORDERED: NITROGLYCERIN IN D5W 250 ML IV ONE (14:35)
== END 2024-05-30 15:52 | disposition short-term general hospital (02) ==
LOC: ED 09:32
PROVIDERS: Family Medicine
DX: J18.9 Pneumonia, unspecified organism (principal); I12.0 Hypertensive chronic kidney disease with stage 5 chronic kidney disease or end stage renal disease; N18.6 End stage renal disease; Z99.2 Dependence on renal dialysis; E78.5 Hyperlipidemia, unspecified; I48.91 Unspecified atrial fibrillation; Z95.0 Presence of cardiac pacemaker; Z86.73 Personal history of transient ischemic attack (TIA), and cerebral infarction without residual deficits
CPT/HCPCS: J2305; J2543; J3370